=== PATIENT | female | born 1985 | race Caucasian/White ===

== ENCOUNTER 2023-03-21 01:17 | Emergency (ER) | payer OTHER, SELFPAY ==
[2023-03-21 01:23] VITALS: BP 80/40; BP 99/45; PULSE 82; PULSE 90; RESP 16; TEMP 35.8; O2SAT 97; BMI 26.9
[2023-03-21] MEDS: 0.9 % Sodium Chloride 1,000 ML 999 ML IV ×2 (01:45→02:47)
[2023-03-21] MEDS: ondansetron HCL 4 MG/2 ML VIAL IVPUSH (01:45)
--- NOTE | 2023-03-21 01:45 | ED.ALCOHOL ---
HPI - Alcohol General Chief Complaint: ETOH/Substance Use Stated Complaint: od Time Seen by Provider: 03/21/23 01:34 Source: patient Mode of arrival: EMS Limitations: other (ETOH intoxication) History of Present Illness HPI narrative: 37 yo female was at work - admits to drinking more tonight than usual. She denies ingesting anything or drugs. Was found by her friend unresponsive PD gave 8mg narcan which they felt help though the patient is still intoxicated and sleepy with vomiting. BP was 80/40 for EMS. IVF started. Patient denies SI. She states she is sorry. I asked her if she was worried about being slipped something and she states no. complaint: alcohol intoxication Last drink: Just prior to admission Chronic alcohol use: No Previous visits for alcohol intoxication: No Recent trauma: No Associated symptoms: nausea and vomiting Treatments prior to arrival: none Related Data Home Medications Medication Instructions Recorded Confirmed cephalexin 500 mg capsule 500 mg PO Q6H 06/13/22 cyproheptadine 4 mg tablet 4 mg PO Q6H PRN 06/13/22 fluticasone propionate 50 1 spray intranasal DAILY 06/13/22 mcg/actuation nasal spray,suspension (Allergy Relief (fluticasone)) lamotrigine 100 mg tablet 50 mg PO DAILY 06/13/22 methylphenidate HCl 10 mg tablet 10 mg PO DAILY 06/13/22 methylphenidate HCl 18 mg 18 mg PO QAM 06/13/22 tablet,extended release 24 hr omeprazole 10 mg capsule,delayed 10 mg PO DAILY 06/13/22 release quetiapine 200 mg tablet 200 mg PO BEDTIME 06/13/22 quetiapine 25 mg tablet 25 mg PO BID 06/13/22 tizanidine 4 mg capsule 4 mg PO Q8H PRN 06/13/22 valacyclovir 500 mg tablet 1,000 mg PO DAILY 06/13/22 zolpidem 5 mg tablet 5 mg PO BEDTIME PRN 06/13/22 Allergies Allergy/AdvReac Type Severity Reaction Status Date / Time No Known Allergies Allergy Unverified 03/24/20 19:38 [No Known Allergies*] Review of Systems Review of Systems: ROS unable to be obtained due to intoxication PMFSH Past Medical History Attestation statement: The following information was validated with the patient. Medical History No pertinent past medical history Social History Social History (Updated 03/21/23 @ 02:15 by Irina Schwarz DO) Patient Tobacco Use Status: Tobacco use Unknown Physical Exam ED Vital Signs: Vital Signs - 24 hr 03/21/23 01:23 03/21/23 04:01 Temperature 96.4 F L Pulse Rate 82 74 Respiratory Rate 16 19 Blood Pressure 99/45 L 90/42 L Pulse Oximetry 97 99 Oxygen Delivery Method Room Air Room Air BMI result Body Mass Index 26.9 Appearance: Somnolent with ETOH odor but oriented and answering questions slowly, active vomiting which she is clearing her airway and mouth and wiping away vomit. No acute distress. Eyes: Pupils equal, round and reactive to light. ENT: Pharynx normal. Atraumatic Neck: Normal inspection. Neck supple. CVS: Normal heart rate and rhythm. Pulses normal. Respiratory: No respiratory distress. Breath sounds normal. Abdomen: Soft and non-tender. Skin: Skin warm and dry. Normal skin color. Normal skin turgor. Extremities: No lower extremity edema. No calf ttp Neuro: Oriented X 3. No motor deficit. No sensory deficit. Course Course Course Narrative: BP low due to ETOH but patient is laying on his side and will not move for us I do not suspect infection or severe sepsis Reevaluation(s) Reevaluation #1: improving anticipate DC once more sober Medical Decision Making Medical Decision Making [facility] Narrative: 37 yo female with ETOH use tonight while at work denies drugs and quite frankly the narcan didn't help her - will give zofran fluids and obtain basic labs. She denies feeling ill or having issues prior to going to work but admits she drank way more than usual. No head trauma noted or reported. Will observe until clinically sober. Differential Diagnosis Differential Diagnoses: The differential diagnosis associated with the presentation includes intoxication Admission/Observation Consideration of admission/observation: Escalation of care including admission/observation considered observe until clinically sober Lab Data [facility] Lab Attestation statement: I reviewed the patient's lab results. 03/21/23 01:47 03/21/23 01:47 Labs: Lab Results 03/21/23 Range/Units 01:47 WBC 14.3 H (4.8-10.8) X10*3/uL RBC 4.11 L (4.20-5.50) X10*6/uL Hgb 12.2 (12.0-16.0) g/dl Hct 37.0 (37.0-47.0) % MCV 90.0 (80.0-98.0) fL MCH 29.7 (27.0-33.0) pg MCHC 33.0 (31.0-35.0) g/dl RDW 12.6 (11.0-16.0) % Plt Count 261 (160-400) X10*3/uL MPV 10.4 (9.4-12.3) fL Immature Gran % (Auto) 0.5 H (0.0-0.4) % Neut % (Auto) 79.2 H (45-73) % Lymph % (Auto) 13.0 L (20-40) % [place] % (Auto) 6.8 (2-11) % Eos % (Auto) 0.3 (0-4) % Baso % (Auto) 0.2 (0-2) % Lymph # (Auto) 1.9 (1.2-4.9) X10*3/uL [place] # (Auto) 1.0 (0.1-1.2) X10*3/uL Eos # (Auto) 0.1 (0.0-0.4) X10*3/uL Baso # (Auto) 0.0 (0.0-0.2) X10*3/uL Abs Immat Gran (auto) 0.07 H (0.00-0.03) X10*3/uL Absolute Neuts (auto) 11.3 H (2.0-8.3) x10*3/uL Absolute Nucleated RBC 0.000 (0.0-0.012) X10*3/uL Nucleated RBC % (auto) 0.0 (0.0-0.2) /100WBC Sodium 144 (135-145) mmol/L Potassium 3.2 L (3.3-5.1) mmol/L Chloride 110 H (96-108) mmol/L Carbon Dioxide 18 L (22-29) mmol/L Anion Gap 19 (12-20) BUN 6 L (9-16) mg/dL Creatinine 0.95 (0.5-1.4) mg/dL Estim Creat Clear Calc 72.5 Estimated GFR > 60 Random Glucose 215 H (60-115) mg/dL Calcium 8.6 (8.4-10.2) mg/dL Magnesium 2.3 (1.6-2.6) mg/dL Total Bilirubin 0.2 (0.0-1.0) mg/dL Direct Bilirubin < 0.2 (0.0-0.5) mg/dL AST 28 (5-31) U/L ALT 24 (0-31) U/L Alkaline Phosphatase 80 (39-117) U/L Total Protein 7.2 (6.5-8.0) g/dL Albumin 4.4 (3.5-5.0) g/dL Beta HCG, Quant < 2 mIU/mL Independent Historian Clinical information obtained from an independent historian. History obtained from or confirmed by: EMS Social Determinants Patient?s care significantly limited by Social Determinants of Health including: Problems related to primary support group Medications Administered Discontinued Medications Generic Name Dose Route Start Last Admin Trade Name Freq PRN Reason Stop Dose Admin Sodium Chloride 1,000 mls @ 999 mls/hr 03/21/23 01:45 03/21/23 02:46 Ns IV 03/21/23 02:45 Infused .Q1H1M ESTELA Infusion Sodium Chloride 1,000 mls @ 999 mls/hr 03/21/23 02:30 03/21/23 03:48 Ns IV 03/21/23 03:30 Infused .Q1H1M ESTELA Infusion Ondansetron HCl 4 mg 03/21/23 01:42 03/21/23 01:45 Ondansetron Hcl 4 Mg/2 Ml Vial IVPUSH 03/21/23 01:43 4 mg ONCE ONE Administration Prochlorperazine Edisylate 10 mg 03/21/23 02:18 03/21/23 02:47 Prochlorperazine Edisylate 10 Mg/2 Ml Vial IVPUSH 03/21/23 02:19 10 mg ONCE ONE Administration Discharge Plan Discharge Clinical Impression: Acute hypokalemia Alcoholic intoxication Qualifiers: Complication of substance-induced condition: with unspecified complication Qualified Code(s): F10.929 - Alcohol use, unspecified with intoxication, unspecified Patient Disposition: Home, Self-Care Instructions: Hypokalemia (ED), Alcohol Intoxication (ED) Additional Instructions: stay with responsible adult return for worsening symptoms, fevers, difficulty breathing, pain or any other concerns. your potassium was slightly low please eat potassium rich foods. Prescriptions: No Action cephalexin 500 mg capsule 500 mg PO Q6H cyproheptadine 4 mg tablet 4 mg PO Q6H PRN fluticasone propionate [Allergy Relief (fluticasone)] 50 mcg/actuation spray,suspension 1 spray intranasal DAILY Rx Instructions: administer into each nostril lamotrigine 100 mg tablet 50 mg PO DAILY methylphenidate HCl 10 mg tablet 10 mg PO DAILY methylphenidate HCl 18 mg tablet extended release 24hr 18 mg PO QAM omeprazole 10 mg capsule,delayed release(DR/EC) 10 mg PO DAILY quetiapine 200 mg tablet 200 mg PO BEDTIME quetiapine 25 mg tablet 25 mg PO BID tizanidine 4 mg capsule 4 mg PO Q8H PRN valacyclovir 500 mg tablet 1,000 mg PO DAILY zolpidem 5 mg tablet 5 mg PO BEDTIME PRN
[2023-03-21 01:53] LABS: MANUAL DIFF FLAG NO
[2023-03-21 01:56] LABS: Basophils Percent Auto 0.2 % (0-2); Eosinophils Absolute Auto 0.1 X10*3/uL (0.0-0.4); Eosinophils Percent Auto 0.3 % (0-4); Hemoglobin 12.2 g/dl (12.0-16.0); Imm Gran Abs Auto 0.07 X10*3/uL (0.00-0.03); Imm Gran Pct Auto 0.5 % (0.0-0.4); Lymphocytes Absolute Auto 1.9 X10*3/uL (1.2-4.9); Mean Corpuscular Hemoglobin 29.7 pg (27.0-33.0); Mean Platelet Volume 10.4 fL (9.4-12.3); Monocytes Percent Auto 6.8 % (2-11); Neutrophils Absolute Auto 11.3 x10*3/uL (2.0-8.3); Neutrophils Percent Auto 79.2 % (45-73); Platelet Count 261 X10*3/uL (160-400); Red Blood Count 4.11 X10*6/uL (4.20-5.50); Red Cell Distribution Width 12.6 % (11.0-16.0); White Blood Count 14.3 X10*3/uL (4.8-10.8)
[2023-03-21 02:20] LABS: Alanine Aminotransferase 24 U/L (0-31); Albumin Level 4.4 g/dL (3.5-5.0); Alkaline Phosphatase 80 U/L (39-117); Anion Gap 19 (12-20); Aspartate Amino Transferase 28 U/L (5-31); Bilirubin Direct < 0.2 mg/dL (0.0-0.5); Bilirubin Total 0.2 mg/dL (0.0-1.0); Blood Urea Nitrogen 6 mg/dL (9-16); Calcium 8.6 mg/dL (8.4-10.2); Carbon Dioxide 18 mmol/L (22-29); Chloride 110 mmol/L (96-108); Creatinine Clr Calc Pharmacy 72.5; Estimated Glomerular Filt Rate > 60; Glucose Random 215 mg/dL (60-115); Magnesium 2.3 mg/dL (1.6-2.6); Potassium 3.2 mmol/L (3.3-5.1); Sodium 144 mmol/L (135-145); Total Protein 7.2 g/dL (6.5-8.0)
[2023-03-21 02:21] LABS: HCG Quantitative < 2 mIU/mL
[2023-03-21] MEDS: Prochlorperazine Edisylate 10 MG/2 ML VIAL IVPUSH (02:47)
[2023-03-21 04:01] VITALS: BP 90/42; PULSE 74; RESP 19; O2SAT 99
[2023-03-21] MEDS: Potassium Chloride Packet 20 MEQ PACKET 40 MEQ PO (05:52)
[2023-03-21 05:53] VITALS: BP 100/53; PULSE 71; RESP 17; O2SAT 100
--- NOTE | 2023-03-21 07:56 | PC.NURSE ---
Pt is a/ox4, she is not aware why she was brought in to the ED last night, advised pt that she was unresponsive last night, and PD narcaned her. Pt belives she might have been ruffied. Pt called and updated that she was here, pt did not want to know details of what happened. Pt currently shaking in bed, provider at bedside assessing pt.
--- OUTSIDE RECORDS SUMMARY | 2023-03-21 07:57 | XMS_ITS | Continuity of Care Document ---
Author Name Unknown Organization [facility] [place] Address [address] [place] [address]- Care Team Providers Care Billing Administrator Name Role Phone Not on Staff, PCP Primary Care Physician Unavail able Encounter 01/15/23 - 01/22/23 [facility] [address], [address] [place] [address]- Attending Physician: Martha Eagle NP Admitting Physician: Martha Eagle NP Referring Physician: Martha Eagle NP Allergies, Adverse Reactions, Alerts No Known Medication Allergies Immunizations Given and Recorded Vaccine Date Status Refusal Reason influenza virus vaccine, inactivated 1, 2 04/20/19 Given Measles/Mumps/Rubella Virus Vaccine 07/25/13 Given tetanus/diphtheria/pertussis, acel(Tdap) 05/25/13 Given 1Result Comment: [facility]# [id number] 2Result Comment: charted on wrong pt. Medications Diazepam = 10 mg, PRN as needed for anxiety, 0 Refills, Maintenance, 12/27/22 22:48:00 EDT, Partial fill upon patient request if the prescription is for a schedule II opioid drug. Start Date: 12/27/22 Status: Ordered lamotrigine 200 mg oral tablet, disintegrating 1 tablet = 200 mg, By Mouth, Daily, # 30 tablet, 0 Refills, Maintenance, 12/27/22 22:47:00 EDT, DISTablet, Partial fill upon patient request if the prescription is for a schedule II opioid drug. Start Date: 12/27/22 Status: Ordered lithium 300 mg oral capsule 1 capsule = 300 mg, By Mouth, 3 times a day, # 270 capsule, 0 Refills, Maintenance, 12/27/22 22:48:00 EDT, Capsule, Partial fill upon patient request if the prescription is for a schedule II opioid drug. Start Date: 12/27/22 Status: Ordered SEROquel XR 300 mg oral tablet, extended release 1 tablet = 300 mg, By Mouth, Daily, # 30 tablet, 0 Refills, Maintenance, 12/27/22 22:47:00 EDT, ER Tablet, Partial fill upon patient request if the prescription is for a schedule II opioid drug. Start Date: 12/27/22 Status: Ordered Problem List Condition Confirmation Course Effective Dates Status Health St atus Informant Back pain Confirmed 07/10/07 Active Bipolar Confirmed 07/10/07 Active Chronic post-traumatic stress disorder (PTSD) Confirmed Active Eating disorder Confirmed Active Generalized anxiety disorder Confirmed Active Insomnia Confirmed Active Intermittent asthma Confirmed Active Asthma, mild intermittent Confirmed Active Cervicalgia of juckcbfs-khgtwjd-vf ial region Confirmed Active Results Radiology Reports * Exam Date Time Procedure Performing Provider Status 01/15/23 9:[address] Head/Brain W/O Contrast Francisco Lugo; Auth (Verified) Notes: (CT Head/Brain W/O Contrast) Reason For Exam: [id number] SYNCOP RESULT: CT Head/Brain W/O Contrast CT Head/Brain W/O Contrast INDICATION: Syncope TECHNIQUE: Noncontrast head CT using axial technique and reconstructed in axial and coronal planes.Iterative reconstruction techniques are used to optimize dose and image quality. CTDIvol Head: 48.40 mGy, DLP Head: 774 mGy*cm. COMPARISON: 02/11/2020 FINDINGS: Java Integration Developer view findings, lines and tubes: None. BRAIN AND EXTRA-AXIAL SPACES: No parenchymal hemorrhage, midline shift, or mass effect. Blair-white matter differentiation is wellpreserved. No acute infarct. Ventricles, sulci, and basilar cisterns are normal. No white matter lesions. No subarachnoid hemorrhage. No subdural or epidural collection. CALVARIUM, SKULL BASE, AND SOFT TISSUES: No fractures or suspicious bony lesions. The paranasal sinuses and mastoid air cells are clear. Visualized orbits and globes are intact. The extracranial soft tissues are unremarkable. IMPRESSION: Normal. WSN: [id number] Ordering Physician: Martha Eagle NP Dictated By: Luisito Gavin MD Dictated Date/Time: 01/15/23 11:30 a Reviewed By: Luisito Gavin MD Signed By: Luisito Gavin MD Signed Date/Time: 01/15/23 11:30 am Transcribed By: BLESSING Transcribed Date/Time: 01/15/23 11:29 am Social History Social History Type Response Smoking Status Former smoker, quit more than 30 days ago; Tobacco user in household: No; Type: Cigarettes; Interested in cessation: No entered on: 08/01/18 Sex Patient Care team information Care Team Personnel Name: Mela Arreaga MA Position: [facility] RN Member Role: Primary Care Nurse Name: Not on Staff, PCP Position: [facility] Physician (General Medicine) Member Role: PCP Care Team Related Persons Name: GINA RAMOS Address: home [address] [place] [id number] Name: BRYCE VAZQUEZ Name: CHARI MANLEY Address: [address] [address] Name: TEDDY SAUCEDA Address: [address] [place] [address]
--- OUTSIDE RECORDS SUMMARY | 2023-03-21 07:57 | XMS_ITS | Continuity of Care Document ---
Author Name Unknown Organization [facility] Address [address] [place] [address]- Care Team Providers Care Riverboat Captain Name Role Phone Sebastien HURST, Yael Fields Primary Care Physician Encounter [facility] Date(s): 03/30/21 - 03/30/[address] [address]- Discharge Disposition: A-D/C Home Attending Physician: Geremias Dixon MD Admitting Physician: Geremias Dixon MD Referring Physician: Geremias Dixon MD Allergies, Adverse Reactions, Alerts No Known Medication Allergies Immunizations Given and Recorded Vaccine Date Status Refusal Reason influenza virus vaccine, inactivated 1, 2 04/20/19 Given Measles/Mumps/Rubella Virus Vaccine 07/25/13 Given tetanus/diphtheria/pertussis, acel(Tdap) 05/25/13 Given 1Result Comment: [facility]# [id number] 2Result Comment: charted on wrong pt. Medications acetaminophen 325 mg oral tablet 650 mg, By Mouth, Every 6 hours, PRN, Refills 0, Maintenance, Pain , Mild Pain , Moderate, 12/15/18 13:27:49 EDT Start Date: 12/15/18 Status: Ordered Lamotrigine 100 mg, By Mouth, Daily, Refills 0, Maintenance, 12/13/18 14:51:11 EDT Start Date: 12/13/18 Status: Ordered Lunesta 2 mg oral tablet 1 tablet = 2 mg, By Mouth, Daily at bedtime, PRN for insomnia, # 30 tablet, 0 Refills, Maintenance,03/08/21 9:34:00 EDT, Tablet, [id number], Partial fill upon patient request if the prescription is for a schedule II opioid drug., 163, cm, 08/... Start Date: 03/08/21 Status: Ordered omeprazole 20 mg oral delayed release tablet 1 tablet = 20 mg, By Mouth, Daily, # 30 tablet, 6 Refills, Maintenance, 10/17/20 14:20:00 EDT, CR Tablet, [facility]/pharm[facility] #[id number], Partial fill upon patient request if the prescription is for a schedule II opioid drug., 163, cm, 10/17/20 14:06:00 EDT, Heig... Start Date: 10/17/20 Stop Date: 05/15/21 Status: Ordered ondansetron 4 mg oral tablet 1 tablet, By Mouth, Every 12 hours, PRN NEEDED FOR NAUSEA AND VOMITING FOR, # 60 tablet, 1 Refills, Maintenance, 06/22/20 8:37:00 EST, [facility] STORE [id number], 163, cm, 04/04/20 13:24:00 EDT, Height, 48, kg, 12/13/18 14:17:00 EDT, Dry Weight Start Date: 06/22/20 Stop Date: 07/22/20 Status: Ordered Rid Pediculicide 0.33%-4% topical shampoo 1 applicator, Topically, Once, as directed on package labeling, # 118 mL, 1 Refills, Soft Stop, 10/12/19 14:24:00 EDT, [facility]/pharmacy #[id number], 1 applicator Topically Once,Instr:as directed on package labeling, 163, cm, 04/20/19 15:52:00 EDT, Height, 48, k... Start Date: 10/12/19 Status: Ordered tiZANidine 4 mg oral tablet 1, tablet, By Mouth, Every 8 hours, # 90 tablet, Refills 0, Route to Pharmacy Electronically, [id number], 163, cm, 03/06/21 15:24:00 EDT, Height Start Date: 03/29/21 Status: Ordered valACYclovir 500 mg oral tablet 1,000 mg, 2, tablet, By Mouth, Daily, for 30 days, # 60 tablet, Refills 5, Tot. Refills 5, Acute 09/13/21 14:19:00 EST, 03/17/21 14:19:00 EDT, Route to Pharmacy Electronically, [facility]/pharm[facility] #[id number], 163, cm, 03/06/21 15:24:00 EDT, Height Start Date: 03/17/21 Stop Date: 09/13/21 Status: Ordered Problem List Condition Effective Dates Status Health Status Inform ant Back pain(Confirmed) 07/10/07 Active Bipolar(Confirmed) 07/10/07 Active Chronic post-traumatic stres s disorder (PTSD)(Confirmed) Active Eating disorder(Confirmed) Active Generalized anxiety disorder(Confirmed) Active Insomnia(Confirmed) Active Intermittent asthma(Confirmed) Active Asthma, mild intermittent(Confirmed) Active Cervicalgia of occipito-atla nto-axial region(Confirmed) Active Procedures Procedure Date Related Diagnosis Body Site Status Colonoscopy and biopsy of colon 03/30/21 Completed Esophagogastroduodenoscopy and biopsy 03/30/21 Completed Vital Signs Most recent to oldest [Reference Range]: 1 2 3 Height 165.1 cm (03/30/21 1:12 PM) Weight 40.9 kg (03/30/21 1:12 PM) Oxygen Saturation [94-100 %] 100 % (03/30/21 3:59 PM) 100 % (03/30/21 3:36 PM) 100 % (03/30/21 3:33 PM) Pulse Rate [55-90 bpm] 74 bpm (03/30/21 1:12 PM) Body Mass Index [18.5-24.99] 15 *L* (03/30/21 1:12 PM) Blood Pressure [90-138/55-84 mm Hg] 98/71mm Hg (03/30/21 3:59 PM) 89/42mm Hg *L* (03/30/21 3:36 PM) 86/55mm Hg *L* (03/30/21 3:33 PM) Respiratory Rate [16-30 br/min] 14 br/min *L* (03/30/21 3:59 PM) 19 br/min (03/30/21 3:36 PM) 20 br/min (03/30/21 3:33 PM) Temperature [96.8-100.4 DegF] 97.9 DegF (03/30/21 1:12 PM) Mode of Delivery (Oxygen) Room air (03/30/21 3:59 PM) Room air (03/30/21 3:36 PM) Room air (03/30/21 3:33 PM) Blood pressure sites Arm, left (03/30/21 3:59 PM) Arm, left (03/30/21 3:36 PM) Arm, left (03/30/21 3:33 PM) Temperature Route Temporal (03/30/21 1:12 PM) Dry Weight 40.9 kg (03/30/21 1:12 PM) Weight Obtained Via Patient/family state d (03/30/21 1:12 PM) Dry Weight Obtained Via Patient/family s tated (03/30/21 1:12 PM) Social History Social History Type Response Smoking Status Former smoker, quit more than 30 days ago; Tobacco user in household: No; Type: Cigarettes; Interested in cessation: No entered on: 08/01/18 Sex Female
--- OUTSIDE RECORDS SUMMARY | 2023-03-21 07:57 | XMS_ITS | Continuity of Care Document ---
Author Name Unknown Organization [facility] Address [address] [place] [address]- Care Team Providers Care School Business Administrator Name Role Phone Sebastien HURST, Yael Fields Primary Care Physician [phone] Encounter [facility] NBR [id number] Date(s): 10/01/19 - 10/11/[facility] [address] [place] [address]- Attending Physician: Drew Ruffin Admitting Physician: Drew Ruffin Referring Physician: AdmtrDrew Allergies, Adverse Reactions, Alerts No Known Medication Allergies Immunizations Given and Recorded Vaccine Date Status Refusal Reason influenza virus vaccine, inactivated 1, 2 04/20/19 Given Measles/Mumps/Rubella Virus Vaccine 07/25/13 Given tetanus/diphtheria/pertussis, acel(Tdap) 05/25/13 Given 1Result Comment: [facility]# [id number] 2Result Comment: charted on wrong pt. Medications acetaminophen 325 mg oral tablet 650 mg, By Mouth, Every 6 hours, PRN, Refills 0, Maintenance, Pain , Mild Pain , Moderate, 12/15/18 13:27:49 EDT Start Date: 12/15/18 Status: Ordered Lamotrigine 100 mg, By Mouth, Daily, Refills 0, Maintenance, 12/13/18 14:51:11 EDT Start Date: 12/13/18 Status: Ordered Zofran 4 mg oral tablet 1 tablet = 4 mg, By Mouth, Every 8 hours, PRN Nausea & Vomiting, # 6 tablet, 0 Refills, Maintenance, 12/15/18 13:28:17 EDT, Tablet Start Date: 12/15/18 Status: Ordered Problem List Condition Effective Dates Status Health Status Inform ant Back pain(Confirmed) 07/10/07 Active Bipolar(Confirmed) 07/10/07 Active Chronic post-traumatic stres s disorder (PTSD)(Confirmed) Active Eating disorder(Confirmed) Active Generalized anxiety disorder(Confirmed) Active Insomnia(Confirmed) Active Intermittent asthma(Confirmed) Active Asthma, mild intermittent(Confirmed) Active Cervicalgia of occipito-atla nto-axial region(Confirmed) Active Social History Social History Type Response Smoking Status Former smoker, quit more than 30 days ago; Tobacco user in household: No; Type: Cigarettes; Interested in cessation: No entered on: 08/01/18 Sex
--- OUTSIDE RECORDS SUMMARY | 2023-03-21 07:57 | XMS_ITS | Continuity of Care Document ---
Author Name Unknown Organization [facility] Address [address] [place] [address]- Care Team Providers Care Information Services Tech Name Role Phone Yael Crowe MD Primary Care Physician [phone] Encounter [facility] NBR [id number] Date(s): 08/03/20 [facility] [address] [place] [address]- Attending Physician: AdmDrew cuevas Admitting Physician: AdmtrDrew Referring Physician: Admtr, Ar8 Allergies, Adverse Reactions, Alerts No Known Medication Allergies Immunizations Given and Recorded Vaccine Date Status Refusal Reason influenza virus vaccine, inactivated 1, 2 04/20/19 Given Measles/Mumps/Rubella Virus Vaccine 07/25/13 Given tetanus/diphtheria/pertussis, acel(Tdap) 05/25/13 Given 1Result Comment: [facility]# [id number] 2Result Comment: charted on wrong pt. Medications acetaminophen 325 mg oral tablet 650 mg, By Mouth, Every 6 hours, PRN, Refills 0, Maintenance, Pain , Mild Pain , Moderate, 12/15/18 13:27:49 EDT Start Date: 12/15/18 Status: Ordered Lamotrigine 100 mg, By Mouth, Daily, Refills 0, Maintenance, 12/13/18 14:51:11 EDT Start Date: 12/13/18 Status: Ordered ondansetron 4 mg oral tablet 1 tablet, By Mouth, Every 12 hours, PRN NEEDED FOR NAUSEA AND VOMITING FOR, # 60 tablet, 1 Refills, Maintenance, 06/22/20 8:37:00 EST, [id number], 163, cm, 04/04/20 13:24:00 EDT, Height, 48, kg, 12/13/18 14:17:00 EDT, Dry Weight Start Date: 06/22/20 Stop Date: 07/22/20 Status: Ordered Rid Pediculicide 0.33%-4% topical shampoo 1 applicator, Topically, Once, as directed on package labeling, # 118 mL, 1 Refills, Soft Stop, 10/12/19 14:24:00 EDT, [facility]/pharmacy #[id number], 1 applicator Topically Once,Instr:as directed on package labeling, 163, cm, 04/20/19 15:52:00 EDT, Height, 48, k... Start Date: 10/12/19 Status: Ordered valACYclovir 500 mg oral tablet 1,000 mg, 2, tablet, By Mouth, Daily, for 30 days, # 60 tablet, Refills 5, Tot. Refills 5, Acute 10/26/20 14:54:00 EDT, 04/29/20 14:54:00 EDT, Route to Pharmacy Electronically, [facility]/pharmacy #[id number], 163, cm, 04/04/20 13:24:00 EDT, Height, 48, kg, ... Start Date: 04/29/20 Stop Date: 10/26/20 Status: Ordered Problem List Condition Effective Dates [...]
--- OUTSIDE RECORDS SUMMARY | 2023-03-21 07:57 | XMS_ITS | Continuity of Care Document ---
Author Name Unknown Organization [facility] ter Address [address] [place] [address]- Care Team Providers Care Service Center Technician Name Role Phone Natalie Aaron MD Primary Care Physician Encounter [facility] Date(s): 09/21/21 - 10/27/[address] [address]- Attending Physician: Neha Zabala MD Admitting Physician: Neha Zabala MD Referring Physician: Neha Zabala MD Allergies, Adverse Reactions, Alerts No Known Medication Allergies Immunizations Given and Recorded Vaccine Date Status Refusal Reason influenza virus vaccine, inactivated 1, 2 04/20/19 Given Measles/Mumps/Rubella Virus Vaccine 07/25/13 Given tetanus/diphtheria/pertussis, acel(Tdap) 05/25/13 Given 1Result Comment: [facility]# [id number] 2Result Comment: charted on wrong pt. Medications acetaminophen 325 mg oral tablet 650 mg, By Mouth, Every 6 hours, PRN, Refills 0, Maintenance, Pain , Mild Pain , Moderate, 12/15/18 13:27:49 EDT Start Date: 12/15/18 Status: Ordered Ambien 5 mg oral tablet 1 tablet = 5 mg, By Mouth, Daily at bedtime, PRN as needed for insomnia, # 30 tablet, 0 Refills, Acute 11/18/21 17:57:00 EDT, 05/22/21 17:57:00 EST, Tablet, [id number], Partial fill upon patient request if the prescription is for a schedule II... Start Date: 05/22/21 Stop Date: 11/18/21 Status: Ordered Lamotrigine 100 mg, By Mouth, Daily, Refills 0, Maintenance, 12/13/18 14:51:11 EDT Start Date: 12/13/18 Status: Ordered omeprazole 20 mg oral delayed release tablet 1 tablet = 20 mg, By Mouth, Daily, # 30 tablet, 6 Refills, Maintenance, 10/17/20 14:20:00 EDT, CR Tablet, [facility]/pharmacy #[id number], Partial fill upon patient request if the prescription is for a schedule II opioid drug., 163, cm, 10/17/20 14:06:00 EDT, [place]... Start Date: 10/17/20 Stop Date: 05/15/21 Status: Ordered ondansetron 4 mg oral tablet 1 tablet, By Mouth, Every 12 hours, PRN NEEDED FOR NAUSEA AND VOMITING FOR, # 60 tablet, 1 Refills, Maintenance, 06/22/20 8:37:00 EST, [facility] STORE 27105, 163, cm, 04/04/20 13:24:00 EDT, Height, 48, [...] tablet, Refills 0, Route to Pharmacy Electronically, [facility] 85015, 163, cm, 03/06/21 15:24:00 EDT, Height Start Date: 03/29/21 Status: Ordered valACYclovir 500 mg oral tablet 2, tablet, By Mouth, Daily, # 180 tablet, Refills 1, Route to Pharmacy Electronically, [facility] 44722, 165.1, cm, 05/24/21 17:21:00 EST, Height, 40.9, kg, 03/30/21 13:12:00 EDT, Dry Weight Start Date: 09/06/21 Status: Ordered Problem List Condition Effective Dates Status Health Status Inform ant Back pain(Confirmed) 07/10/07 Active Bipolar(Confirmed) 07/10/07 Active Chronic post-traumatic stres s disorder (PTSD)(Confirmed) Active Eating disorder(Confirmed) Active Generalized anxiety disorder(Confirmed) Active Insomnia(Confirmed) Active Intermittent asthma(Confirmed) Active Asthma, mild intermittent(Confirmed) Active Cervicalgia of occipito-atla nto-axial region(Confirmed) Active Underweight(Confirmed) Active Social History Social History Type Response Smoking Status Former smoker, quit more than 30 days ago; Tobacco user in household: No; Type: Cigarettes; Interested in cessation: No entered on: 08/01/18 Sex Female
--- OUTSIDE RECORDS SUMMARY | 2023-03-21 07:57 | XMS_ITS | Continuity of Care Document ---
Author Name Unknown Organization [facility] Address [address] [place] [address]- Care Team Providers Care Non Food Receiving Clerk Name Role Phone Sebastien HURST, Yael Fields Primary Care Physician [phone] Encounter [facility] NBR [id number] Date(s): 02/09/20 - 03/10/20 [facility] [address] [place] [address]- Allergies, Adverse Reactions, Alerts No Known Medication Allergies Immunizations Given and Recorded Vaccine Date Status Refusal Reason influenza virus vaccine, inactivated 1, 2 04/20/19 Given Measles/Mumps/Rubella Virus Vaccine 07/25/13 Given tetanus/diphtheria/pertussis, acel(Tdap) 05/25/13 Given 1Result Comment: [facility]# [id number] 2Result Comment: charted on wrong pt. Medications acetaminophen 325 mg oral tablet 650 mg, By Mouth, Every 6 hours, PRN, Refills 0, Maintenance, Pain , Mild Pain , Moderate, 12/15/18 13:27:49 EDT Start Date: 12/15/18 Status: Ordered Lamotrigine 100 mg, By Mouth, Daily, Refills 0, Maintenance, 12/13/18 14:51:11 EDT Start Date: 12/13/18 Status: Ordered Rid Pediculicide 0.33%-4% topical shampoo 1 applicator, Topically, Once, as directed on package labeling, # 118 mL, 1 Refills, Soft Stop, 10/12/19 14:24:00 EDT, [id number], 1 applicator Topically Once,Instr:as directed on package labeling, 163, cm, 04/20/19 15:52:00 EDT, Height, 48, k... Start Date: 10/12/19 Status: Ordered Zofran 4 mg oral tablet [...]
--- OUTSIDE RECORDS SUMMARY | 2023-03-21 07:57 | XMS_ITS | Continuity of Care Document ---
Author Name Unknown Organization [facility] Address [address] [place] [address]- Care Team Providers Care Director Bioinformatics Name Role Phone Sebastien HURST, Yael M Primary Care Physician [phone] Encounter [facility] Date(s): 03/17/21 - 04/16/21 [place] [id number]- [place] Allergies, Adverse Reactions, Alerts No Known Medication Allergies Immunizations Given and Recorded Vaccine Date Status Refusal Reason influenza virus vaccine, inactivated 1, 2 04/20/19 Given Measles/Mumps/Rubella Virus Vaccine 07/25/13 Given tetanus/diphtheria/pertussis, acel(Tdap) 05/25/13 Given 1Result Comment: [facility]# [id number] 2Result Comment: charted on wrong pt. Medications [...] a schedule II opioid drug., 163, cm, ... Start Date: 03/08/21 Status: Ordered omeprazole 20 mg oral delayed release tablet 1 tablet = 20 mg, By Mouth, Daily, # 30 tablet, 6 Refills, Maintenance, 10/17/20 14:20:00 EDT, CR Tablet, [facility]/pharmacy #[id number], Partial fill upon patient request if the prescription is for a schedule II opioid drug., 163, cm, 10/17/20 14:06:00 EDT, [place]. Start Date: 10/17/20 Stop Date: 05/15/21 Status: Ordered ondansetron 4 mg oral tablet 1 tablet, By Mouth, Every 12 hours, PRN NEEDED FOR NAUSEA AND VOMITING FOR, # 60 tablet, 1 Refills, Maintenance, 06/22/20 8:37:00 EST, [facility] STORE 02932, 163, cm, 04/04/20 13:24:00 EDT, Height, 48, kg, 12/13/18 14:17:00 EDT, Dry Weight Start Date: 06/22/20 Stop Date: 07/22/20 Status: Ordered Rid Pediculicide 0.33%-4% topical shampoo 1 applicator, Topically, Once, as directed on package labeling, # 118 mL, 1 Refills, Soft Stop, 10/12/19 14:24:00 EDT, [facility]/pharmacy #[id number], 1 applicator Topically Once,Instr:as directed on package labeling, 163, cm, 04/20/19 15:52:00 EDT, Height, 48, k... Start Date: 10/12/19 Status: Ordered tiZANidine 4 mg oral tablet 1, tablet, By Mouth, Every 8 hours, # 90 tablet, Refills 0, Route to Pharmacy Electronically, [facility] STORE 14640, 163, cm, 03/06/21 15:24:00 EDT, Height Start Date: 03/29/21 Status: Ordered valACYclovir 500 mg oral tablet 1,000 mg, 2, tablet, By Mouth, Daily, for 30 days, # 60 tablet, Refills 5, Tot. Refills 5, Acute 09/13/21 14:19:00 EST, 03/17/21 14:19:00 EDT, Route to Pharmacy Electronically, [facility]/pharmacy #[id number], 163, cm, 03/06/21 15:24:00 EDT, [...]
--- OUTSIDE RECORDS SUMMARY | 2023-03-21 07:58 | XMS_ITS | Continuity of Care Document ---
Author Name Unknown Organization [facility] Address [address] [place] [address]- Care Team Providers Care White Metal Caster Name Role Phone Sebastien HURST, Yael Fields Primary Care Physician [phone] Encounter [facility] NBR [id number] Date(s): 12/16/19 - [facility]/15/[facility] [address] [place] [address]- Attending Physician: Drew Ruffin Admitting Physician: Drew Ruffin Referring Physician: AdmtrDrew Allergies, Adverse Reactions, Alerts No Known Medication Allergies Immunizations Given and Recorded Vaccine Date Status Refusal Reason influenza virus vaccine, inactivated 1, 2 04/20/19 Given Measles/Mumps/Rubella Virus Vaccine 07/25/13 Given tetanus/diphtheria/pertussis, acel(Tdap) 05/25/13 Given 1Result Comment: [facility]# [id number] 2Result Comment: charted on wrong pt. Medications [...]
--- OUTSIDE RECORDS SUMMARY | 2023-03-21 07:58 | XMS_ITS | Continuity of Care Document ---
Author Name Unknown Organization [facility] Address [address] [place] [address]- Care Team Providers Care Enrichment Director Name Role Phone Sebastien HURST, Yael Fields Primary Care Physician Encounter [facility] Date(s): 08/31/21 - 09/30/[address] [address]- Attending Physician: Drew Ruffin Admitting Physician: Drew Ruffin Referring Physician: AdmtrDrew Allergies, Adverse Reactions, Alerts No Known Medication Allergies Immunizations Given and Recorded Vaccine Date Status Refusal Reason influenza virus vaccine, inactivated 1, 2 04/20/19 Given Measles/Mumps/Rubella Virus Vaccine 07/25/13 Given tetanus/diphtheria/pertussis, acel(Tdap) 05/25/13 Given 1Result Comment: [facility]# [id number] 2Result Comment: charted on wrong pt. Medications [...] Refills, Maintenance, 10/17/20 14:20:00 EDT, CR Tablet, [facility]/pharmacy #[id number], Partial fill upon patient request if the prescription is for a schedule II opioid drug., 163, cm, 10/17/20 14:06:00 EDT, Heig... Start Date: 10/17/20 Stop Date: 05/15/21 Status: Ordered ondansetron 4 mg oral tablet 1 tablet, By Mouth, Every 12 hours, PRN NEEDED FOR NAUSEA AND VOMITING FOR, # 60 tablet, 1 Refills, Maintenance, 06/22/20 8:37:00 EST, [facility] STORE 44704, 163, cm, 04/04/20 13:24:00 EDT, Height, 48, kg, 12/13/18 14:17:00 EDT, Dry Weight Start Date: 06/22/20 Stop Date: 07/22/20 Status: Ordered Rid Pediculicide 0.33%-4% topical shampoo 1 applicator, Topically, Once, as directed on package labeling, # 118 mL, 1 Refills, Soft Stop, 10/12/19 14:24:00 EDT, [facility]/pharmacy #[id number], 1 applicator Topically Once,Instr:as directed on package labeling, 163, cm, 04/20/19 15:52:00 EDT, Height, 48, k... Start Date: 10/12/19 Status: Ordered tiZANidine 4 mg oral tablet 1, tablet, By Mouth, Every 8 hours, # 90 tablet, Refills 0, Route to [facility]acy Electronically, [facility], 163, cm, 03/06/21 15:24:00 EDT, Height Start Date: 03/29/21 Status: Ordered valACYclovir 500 mg oral tablet 2, tablet, By Mouth, Daily, # 180 tablet, Refills 1, Route to Pharmacy Electronically, [facility] 39363, 165.1, cm, 05/24/21 17:21:00 EST, Height, 40.9, [...]
--- OUTSIDE RECORDS SUMMARY | 2023-03-21 07:58 | XMS_ITS | Continuity of Care Document ---
Author Name Unknown Organization [facility] Address [address] [place] [address]- Care Team Providers Care Paint Preparer Name Role Phone Yael Crowe MD Primary Care Physician Encounter [facility] Date(s): 07/13/20 - 08/12/20 [facility] [address] [place] [address]- Allergies, Adverse Reactions, Alerts No Known Medication Allergies Immunizations Given and Recorded Vaccine Date Status Refusal Reason influenza virus vaccine, inactivated 1, 2 04/20/19 Given Measles/Mumps/Rubella Virus Vaccine 07/25/13 Given tetanus/diphtheria/pertussis, acel(Tdap) 05/25/13 Given 1Result Comment: [facility]# [id number] 2Result Comment: charted on wrong pt. Medications [...] tablet, 1 Refills, Maintenance, 06/22/20 8:37:00 EST, [facility] 87826, 163, cm, 04/04/20 13:24:00 EDT, Height, 48, kg, 12/13/18 14:17:00 EDT, Dry Weight Start Date: 06/22/20 Stop Date: 07/22/20 Status: Ordered Rid Pediculicide 0.33%-4% topical shampoo 1 applicator, Topically, Once, as directed on package labeling, # 118 mL, 1 Refills, Soft Stop, 10/12/19 14:24:00 EDT, [facility]/pharmacy #[id number], 1 applicator Topically Once,Instr:as directed on package labeling, 163, cm, 04/20/19 15:52:00 EDT, Height, 48, k... Start Date: 10/12/19 Status: Ordered valACYclovir 500 mg oral tablet 1,000 mg, 2, tablet, By Mouth, Daily, for 30 days, # 60 tablet, Refills 5, Tot. Refills 5, Acute 10/26/20 14:54:00 EDT, 04/29/20 14:54:00 EDT, Route to Pharmacy Electronically, [facility]/pharmacy #[id number], 163, cm, 04/04/20 13:24:00 EDT, Height, 48, kg, 12/13/... Start Date: 04/29/20 Stop Date: 10/26/20 Status: [...]
--- OUTSIDE RECORDS SUMMARY | 2023-03-21 07:58 | XMS_ITS | Continuity of Care Document ---
Author Name Unknown [facility] Address [address] [place] [address]- Care Team Providers Care Airconditioning Plant Operator Name Role Phone Yael Crowe MD Primary Care Physician [phone] Encounter [facility] Date(s): 07/27/20 - 08/26/[facility] [address] [place] [address]- Allergies, Adverse Reactions, Alerts No Known Medication Allergies Immunizations Given and Recorded Vaccine Date Status Refusal Reason influenza virus vaccine, inactivated 1, 2 04/20/19 Given Measles/Mumps/Rubella Virus Vaccine 07/25/13 Given tetanus/diphtheria/pertussis, acel(Tdap) 05/25/13 Given 1Result Comment: [facility]# [id number] 2Result Comment: charted on wrong pt. Medications [...] tablet, 1 Refills, Maintenance, 06/22/20 8:37:00 EST, [facility] ST[facility] 22591, 163, cm, 04/04/20 13:24:00 EDT, Height, 48, kg, 12/13/18 14:17:00 EDT, Dry Weight Start Date: 06/22/20 Stop Date: 07/22/20 Status: Ordered Rid Pediculicide 0.33%-4% topical shampoo 1 applicator, Topically, Once, as directed on package labeling, # 118 mL, 1 Refills, Soft Stop, 10/12/19 14:24:00 EDT, [facility]/pharmacy #[id number], 1 applicator Topically Once,Instr:as directed on package labeling, 163, cm, 04/20/19 15:52:00 EDT, Height, 48, k... Start Date: 10/12/19 Status: Ordered valACYclovir 500 mg oral tablet 1,000 mg, 2, tablet, By Mouth, Daily, for 30 days, # 60 tablet, Refills 5, Tot. Refills 5, Acute 10/26/20 14:54:00 EDT, 04/29/20 14:54:00 EDT, Route to Pharmacy Electronically, [facility]/pharmacy #[id number], 163, cm, 04/04/20 13:24:00 EDT, [...]
--- OUTSIDE RECORDS SUMMARY | 2023-03-21 07:58 | XMS_ITS | Continuity of Care Document ---
Author Name Unknown Organization [facility] Address [address] [place] [address]- Care Team Providers Care Pick Up Operator Name Role Phone Yael Crowe MD Primary Care Physician Encounter [facility] NBR [id number] Date(s): 04/20/19 - 09/05/19 [email or web address] [address] [place] [address]- Attending Physician: Yael Crowe MD Allergies, Adverse Reactions, Alerts No Known Medication Allergies Immunizations Given and Recorded Vaccine Date Status Refusal Reason influenza virus vaccine, inactivated 1, 2 04/20/19 Given Measles/Mumps/Rubella Virus Vaccine 07/25/13 Given tetanus/diphtheria/pertussis, acel(Tdap) 05/25/13 Given 1Result Comment: [facility]# [id number] 2Result Comment: charted on wrong pt. Medications [...] Status Health Status Inform ant Back pain(Confirmed) 1/3/08 Active Bipolar(Confirmed) 07/10/07 Active Chronic post-traumatic stres [...]
--- OUTSIDE RECORDS SUMMARY | 2023-03-21 07:58 | XMS_ITS | Continuity of Care Document ---
Author Name Unknown Organization [facility] Address [address] [place] [address]- Care Team Providers Care Higher Level Teaching Assistant Name Role Phone Sebastien HURST, Yael Fields Primary Care Physician Encounter [facility] NBR [id number] Date(s): 06/21/20 - 07/21/20 [facility] [address] [place] [address]- Allergies, Adverse Reactions, Alerts No Known Medication Allergies Immunizations Given and Recorded Vaccine Date Status Refusal Reason influenza virus vaccine, inactivated 1, 2 04/20/19 Given Measles/Mumps/Rubella Virus Vaccine 07/25/13 Given tetanus/diphtheria/pertussis, acel(Tdap) 05/25/13 Given 1Result Comment: [facility]# [id number] 2Result Comment: charted on wrong pt. Medications [...] tablet, 1 Refills, Maintenance, 06/22/20 8:37:00 EST, [facility] 15996, 163, cm, 04/04/20 13:24:00 EDT, Height, 48, kg, 12/13/18 14:17:00 EDT, Dry Weight Start Date: 06/22/20 Stop Date: 07/22/20 Status: Ordered Rid Pediculicide 0.33%-4% topical shampoo 1 applicator, Topically, Once, as directed on package labeling, # 118 mL, 1 Refills, Soft Stop, 10/12/19 14:24:00 EDT, [facility]/pharmacy #[id number], 1 applicator Topically Once,Instr:as directed on package labeling, 163, cm, 04/20/19 15:52:00 EDT, Height, 48, k... Start Date: 10/12/19 Status: Ordered valACYclovir 500 mg oral tablet 1,000 mg, 2, tablet, By Mouth, Daily, for 30 days, # 60 tablet, Refills 5, Tot. Refills 5, Acute 10/26/20 14:54:00 EDT, 04/29/20 14:54:00 EDT, Route to Pharmacy Electronically, [facility]/pharmacy #[id number], 163, cm, 04/04/20 13:24:00 EDT, [...]
--- OUTSIDE RECORDS SUMMARY | 2023-03-21 07:58 | XMS_ITS | Continuity of Care Document ---
Author Name Unknown Organization [facility] Address [address] [place] [address]- Care Team Providers Care Home Security Alarm Installer Name Role Phone Sebastien HURST, Yael Fields Primary Care Physician Encounter [facility] NBR [id number] Date(s): 03/03/20 - 04/02/20 [facility] [address] [place] [address]- Allergies, Adverse Reactions, Alerts No Known Medication Allergies Immunizations Given and Recorded Vaccine Date Status Refusal Reason influenza virus vaccine, inactivated 1, 2 04/20/19 Given Measles/Mumps/Rubella Virus Vaccine 07/25/13 Given tetanus/diphtheria/pertussis, acel(Tdap) 05/25/13 Given 1Result Comment: [facility]# [id number] 2Result Comment: charted on wrong pt. Medications [...]
--- OUTSIDE RECORDS SUMMARY | 2023-03-21 07:58 | XMS_ITS | Continuity of Care Document ---
Author Name Unknown Organization [facility] Address [address] [place] [address]- Care Team Providers Care High School Music Teacher Name Role Phone Yael Crowe MD Primary Care Physician [phone] Encounter [facility] Date(s): 03/31/21 - 04/30/21 [facility] [address] [place] [address]- [place] Allergies, Adverse Reactions, Alerts No Known Medication Allergies Immunizations Given and Recorded Vaccine Date Status Refusal Reason influenza virus vaccine, inactivated 1, 2 04/20/19 Given Measles/Mumps/Rubella Virus Vaccine 07/25/13 Given tetanus/diphtheria/pertussis, acel(Tdap) 05/25/13 Given 1Result Comment: [facility]# [id number] 2Result Comment: charted on wrong pt. Medications [...] a schedule II opioid drug., 163, cm, . Start Date: 03/08/21 Status: Ordered omeprazole 20 mg oral delayed release tablet 1 tablet = 20 mg, By Mouth, Daily, # 30 tablet, 6 Refills, Maintenance, 10/17/20 14:20:00 EDT, CR Tablet, [facility]/pharmacy #[id number], Partial fill upon patient request if the prescription is for a schedule II opioid drug., 163, cm, 10/17/20 14:06:00 EDT, [facility]. Start Date: 10/17/20 Stop Date: 05/15/21 Status: Ordered ondansetron 4 mg oral tablet 1 tablet, By Mouth, Every 12 hours, PRN NEEDED FOR NAUSEA AND VOMITING FOR, # 60 tablet, 1 Refills, Maintenance, 06/22/20 8:37:00 EST, [facility] ST[facility] 16726, 163, cm, 04/04/20 13:24:00 EDT, Height, 48, kg, 12/13/18 14:17:00 EDT, Dry Weight Start Date: 06/22/20 Stop Date: 07/22/20 Status: Ordered Rid Pediculicide 0.33%-4% topical shampoo 1 applicator, Topically, Once, as directed on package labeling, # 118 mL, 1 Refills, Soft Stop, 10/12/19 14:24:00 EDT, [facility]/pharmacy #[id number], 1 applicator Topically Once,Instr:as directed on package labeling, 163, cm, 04/20/19 15:52:00 EDT, Height, 48, k... Start Date: 10/12/19 Status: Ordered tiZANidine 4 mg oral tablet 1, tablet, By Mouth, Every 8 hours, # 90 tablet, Refills 0, Route to Pharmacy Electronically, [facility] 27439, 163, cm, 03/06/21 15:24:00 EDT, Height Start Date: 03/29/21 Status: Ordered valACYclovir 500 mg oral tablet 1,000 mg, 2, tablet, By Mouth, Daily, for 30 days, # 60 tablet, Refills 5, Tot. Refills 5, Acute 09/13/21 14:19:00 EST, 03/17/21 14:19:00 EDT, Route to Pharmacy Electronically, [facility]/pharmacy #[id number], 163, cm, 03/06/21 [...]
--- OUTSIDE RECORDS SUMMARY | 2023-03-21 07:58 | XMS_ITS | Continuity of Care Document ---
Author Name Unknown Organization [facility] Address [address] [place] [address]- Care Team Providers Care Executive Communications Manager Name Role Phone Sebastien HURST, Yael Fields Primary Care Physician [id number] Date(s[facility] 11/07/20 - [facility]07[facility] [address] [place] [address]- Allergies, Adverse Reactions, Alerts No Known Medication Allergies Immunizations Given and Recorded Vaccine Date Status Refusal Reason influenza virus vaccine, inactivated 1, 2 04/20/19 Given Measles/Mumps/Rubella Virus Vaccine 07/25/13 Given tetanus/diphtheria/pertussis, acel(Tdap) 05/25/13 Given 1Result Comment: [facility]# [id number] 2Result Comment: charted on wrong pt. Medications acetaminophen 325 mg oral tablet 650 mg, By Mouth, Every 6 hours, PRN, Refills 0, Maintenance, Pain , Mild Pain , Moderate, 12/15/18 13:27:49 EDT Start Date: 12/15/18 Status: Ordered Lamotrigine 100 mg, By Mouth, Daily, Refills 0, Maintenance, 12/13/18 14:51:11 EDT Start Date: 12/13/18 Status: Ordered LORazepam 1 mg oral tablet See Instructions, 1 tablet prior to test., # 1 each, 0 Refills, Acute 12/08/20 13:02:00 EDT, 11/07/20 13:02:00 EDT, [facility]/pharmacy #7125, Partial fill upon patient request if the prescription is for a schedule II opioid drug., 163, cm, 10/17/20 14:06:00... Start Date: 11/07/20 Stop Date: 12/08/20 Status: Ordered omeprazole 20 mg oral delayed release tablet 1 tablet = 20 mg, By Mouth, Daily, # 30 tablet, 6 Refills, Maintenance, 10/17/20 14:20:00 EDT, CR Tablet, [facility]/pharmacy #0488, Partial fill upon patient request if the prescription is for a schedule II opioid drug., 163, cm, 10/17/20 14:06:00 EDT, [facility]... Start Date: 10/17/20 Stop Date: 05/15/21 Status: Ordered ondansetron 4 mg oral tablet 1 tablet, By Mouth, Every 12 hours, PRN NEEDED FOR NAUSEA AND VOMITING FOR, # 60 tablet, 1 Refills, Maintenance, 06/22/20 8:37:00 EST, [facility], 163, cm, 04/04/20 13:24:00 EDT, Height, 48, [...] 48, k... Start Date: 10/12/19 Status: Ordered Problem List Condition Effective Dates [...]
--- OUTSIDE RECORDS SUMMARY | 2023-03-21 07:58 | XMS_ITS | Continuity of Care Document ---
Author Name Unknown Organization [facility] Address [address] [place] [address]- Care Team Providers Care Engraver Copperplate Name Role Phone Sebastien HURST, Yael M Primary Care Physician [phone] Encounter [facility] Date(s): 03/06/21 - 04/05/[address] [address]- Attending Physician: Drew Ruffin Admitting Physician: AdmtrDrew Referring Physician: Admtr, ArHali Allergies, Adverse Reactions, Alerts No Known Medication Allergies Immunizations Given and Recorded Vaccine Date Status Refusal Reason influenza virus vaccine, inactivated 1, 2 04/20/19 Given Measles/Mumps/Rubella Virus Vaccine 07/25/13 Given tetanus/diphtheria/pertussis, acel(Tdap) 05/25/13 Given 1Result Comment: [facility]# [id number] 2Result Comment: charted on wrong pt. Medications [...] Refills, Maintenance, 10/17/20 14:20:00 EDT, CR Tablet, [facility]/pharmacy #[id number], Partial fill upon patient request if the prescription is for a schedule II opioid drug., 163, cm, 10/17/20 14:06:00 EDT, Heig... Start Date: 10/17/20 Stop Date: 05/15/21 Status: Ordered ondansetron 4 mg oral tablet 1 tablet, By Mouth, Every 12 hours, PRN NEEDED FOR NAUSEA AND VOMITING FOR, # 60 tablet, 1 Refills, Maintenance, 06/22/20 8:37:00 EST, [facility] STORE [id number], 163, cm, 04/04/20 13:24:00 EDT, Height, 48, kg, 12/13/18 14:17:00 EDT, Dry Weight Start Date: 06/22/20 Stop Date: 07/22/20 Status: Ordered Rid Pediculicide 0.33%-4% topical shampoo 1 applicator, Topically, Once, as directed on package labeling, # 118 mL, 1 Refills, Soft Stop, 10/12/19 14:24:00 EDT, [facility]/pharmacy #[id number], 1 applicator Topically Once,Instr:as directed on package labeling, 163, cm, 04/20/19 15:52:00 EDT, Height, 48, k... Start Date: 10/12/19 Status: Ordered tiZANidine 4 mg oral tablet 1, tablet, By Mouth, Every 8 hours, # 90 tablet, Refills 0, Route to Pharmacy Electronically, [facility] STORE [id number], 163, cm, 03/06/21 15:24:00 EDT, Height Start Date: 03/29/21 Status: Ordered valACYclovir 500 mg oral tablet 1,000 mg, 2, tablet, By Mouth, Daily, for 30 days, # 60 tablet, Refills 5, Tot. Refills 5, Acute 09/13/21 14:19:00 EST, 03/17/21 14:19:00 EDT, Route to Pharmacy Electronically, [facility]/pharmacy #[id number], 163, cm, 03/06/21 15:24:00 EDT, [...]
--- OUTSIDE RECORDS SUMMARY | 2023-03-21 07:58 | XMS_ITS | Continuity of Care Document ---
Author Name Unknown Organization [facility] Address Unknown Care Team Providers Care Deck Lid Fitter Name Role Phone Sebastien HURST, Yael Fields Primary Care Physician [phone] Encounter [facility] Date(s): 07/12/21 - 08/11/21 [facility] Allergies, Adverse Reactions, Alerts No Known Medication Allergies Immunizations Given and Recorded Vaccine Date Status Refusal Reason influenza virus vaccine, inactivated 1, 2 04/20/19 Given Measles/Mumps/Rubella Virus Vaccine 07/25/13 Given tetanus/diphtheria/pertussis, acel(Tdap) 05/25/13 Given 1Result Comment: [facility]# [id number] 2Result Comment: charted on wrong pt. Medications [...] Refills, Maintenance, 10/17/20 14:20:00 EDT, CR Tablet, [id number], Partial fill upon patient request if the prescription is for a schedule II opioid drug., 163, cm, 10/17/20 14:06:00 EDT, Heig... Start Date: 10/17/20 Stop Date: 05/15/21 Status: Ordered ondansetron 4 mg oral tablet 1 tablet, By Mouth, Every 12 hours, PRN NEEDED FOR NAUSEA AND VOMITING FOR, # 60 tablet, 1 Refills, Maintenance, 06/22/20 8:37:00 EST, [facility] STORE 17525, 163, cm, 04/04/20 13:24:00 EDT, Height, 48, kg, 12/13/18 14:17:00 EDT, Dry Weight Start Date: 06/22/20 Stop Date: 07/22/20 Status: Ordered Rid Pediculicide 0.33%-4% topical shampoo 1 applicator, Topically, Once, as directed on package labeling, # 118 mL, 1 Refills, Soft Stop, 10/12/19 14:24:00 EDT, [facility]/pharmacy #[id number], 1 applicator Topically Once,Instr:as directed on package labeling, 163, cm, 04/20/19 15:52:00 EDT, Height, 48, k... Start Date: 10/12/19 Status: Ordered tiZANidine 4 mg oral tablet 1, tablet, By Mouth, Every 8 hours, # 90 tablet, Refills 0, Route to Pharmacy Electronically, [facility] STORE [address]15, 163, cm, 03/06/21 15:24:00 EDT, Height Start Date: 03/29/21 Status: Ordered valACYclovir 500 mg oral tablet 1,000 mg, 2, tablet, By Mouth, Daily, for 30 days, # 60 tablet, Refills 5, Tot. Refills 5, Acute 09/13/21 14:19:00 EST, 03/17/21 14:19:00 EDT, Route to Pharmacy Electronically, [facility]/pharmacy #[id number], 163, cm, 03/06/21 15:24:00 EDT, [...]
--- OUTSIDE RECORDS SUMMARY | 2023-03-21 07:58 | XMS_ITS | Continuity of Care Document ---
Author Name Unknown Organization [facility] Address [address] [place] [address]- Care Team Providers Care Manager Energy Name Role Phone Sebastien HURST, Yael Fields Primary Care Physician [phone] Encounter [facility] NBR [id number] Date(s): 02/04/20 - 03/05/20 [facility] [address] [address]- Attending Physician: Drew Ruffin Admitting Physician: Drew Ruffin Referring Physician: AdmtrDrew Allergies, Adverse Reactions, Alerts No Known Medication Allergies Immunizations Given and Recorded Vaccine Date Status Refusal Reason influenza virus vaccine, inactivated 1, 2 04/20/19 Given Measles/Mumps/Rubella Virus Vaccine 07/25/13 Given tetanus/diphtheria/pertussis, acel(Tdap) 05/25/13 Given 1Result Comment: [facility]# [id number] 2Result Comment: charted on wrong pt. Medications [...] 1 Refills, Soft Stop, 10/12/19 14:24:00 EDT, [facility]/pharmacy #[id number], 1 applicator Topically Once,Instr:as directed [...]
--- OUTSIDE RECORDS SUMMARY | 2023-03-21 07:58 | XMS_ITS | Continuity of Care Document ---
Author Name Unknown Organization [facility] Address [address] [place] [address]- Care Team Providers Care Business Communications Instructor Name Role Phone Yael Crowe MD Primary Care Physician [phone] [id number] Date(s): 12/16/19 - 12/23/[facility] [address] [place] [address]- Attending Physician: Yael rCowe MD Allergies, Adverse Reactions, Alerts No Known Medication Allergies Immunizations Given and Recorded Vaccine Date Status Refusal Reason influenza virus vaccine, inactivated 1, 2 04/20/19 Given Measles/Mumps/Rubella Virus Vaccine 07/25/13 Given tetanus/diphtheria/pertussis, acel(Tdap) 05/25/13 Given 1Result Comment: [facility]# [id number] 2Result Comment: charted on wrong pt. Medications [...] 1 Refills, Soft Stop, 10/12/19 14:24:00 EDT, [facility]/pharmacy #[id number], 1 applicator Topically Once,Instr:as directed [...] Active Cervicalgia of occipito-atla nto-axial region(Confirmed) Active Vital Signs Most recent to oldest [Reference Range]: 1 Height 163 cm (12/15/19 11:17 AM) Social History Social History Type Response Smoking Status Former smoker, quit more than 30 days ago; Tobacco user in household: No; Type: Cigarettes; Interested in cessation: No entered on: 08/01/18 Sex Female
--- OUTSIDE RECORDS SUMMARY | 2023-03-21 07:58 | XMS_ITS | Continuity of Care Document ---
Author Name Unknown Organization [facility] Address [address] [place] [address]- Care Team Providers Care Kier Hand Name Role Phone Sebastien HURST, Yael Fields Primary Care Physician Encounter [facility] NBR [id number] Date(s): 03/09/20 - 04/08/20 [facility] Adult Medicine [address] [place] [address]- Allergies, Adverse Reactions, Alerts No Known Medication Allergies Immunizations Given and Recorded Vaccine Date Status Refusal Reason influenza virus vaccine, inactivated 1, 2 04/20/19 Given Measles/Mumps/Rubella Virus Vaccine 07/25/13 Given tetanus/diphtheria/pertussis, acel(Tdap) 05/25/13 Given 1Result Comment: [facility]# [id number] 2Result Comment: charted on wrong pt. Medications [...] tablet = 4 mg, By Mouth, Every 12 hours, PRN Nausea & Vomiting, # 60 tablet, 1 Refills, Maintenance, 04/04/20 14:16:00 EDT, Tablet, [id number], 163, cm, 04/04/20 13:24:00 EDT, Height, 48, kg, 12/13/18 14:17:00 EDT, Dry Weight Start Date: 04/04/20 Stop Date: 06/03/20 Status: Ordered Problem List Condition Effective Dates [...]
--- OUTSIDE RECORDS SUMMARY | 2023-03-21 07:58 | XMS_ITS | Continuity of Care Document ---
Author Name Unknown Organization [facility] Address [address] [place] [address]- Care Team Providers Care Access Developer Name Role Phone Sebastien HURST, Yael Fields Primary Care Physician Encounter [facility] NBR [id number] Date(s): 03/15/20 - 04/14/20 [facility] [address] [place] [address]- Allergies, Adverse Reactions, Alerts No Known Medication Allergies Immunizations Given and Recorded Vaccine Date Status Refusal Reason influenza virus vaccine, inactivated 1, 2 04/20/19 Given Measles/Mumps/Rubella Virus Vaccine 07/25/13 Given tetanus/diphtheria/pertussis, acel(Tdap) 05/25/13 Given 1Result Comment: [facility]# [id number] 2Result Comment: charted on wrong pt. Medications [...]
--- OUTSIDE RECORDS SUMMARY | 2023-03-21 07:58 | XMS_ITS | Continuity of Care Document ---
Author Name Unknown Organization [facility] Address [address] [place] [address]- Care Team Providers Care Paper Core Machine Operator Name Role Phone Sebastien HURST, Yael Fields Primary Care Physician [phone] Encounter [facility] Date(s): 02/07/21 - 03/09/[address] [address]- Attending Physician: Drew Ruffin Admitting Physician: Drew Ruffin Referring Physician: AdmtrDrew Allergies, Adverse Reactions, Alerts No Known Medication Allergies Immunizations Given and Recorded Vaccine Date Status Refusal Reason influenza virus vaccine, inactivated 1, 2 04/20/19 Given Measles/Mumps/Rubella Virus Vaccine 07/25/13 Given tetanus/diphtheria/pertussis, acel(Tdap) 05/25/13 Given 1Result Comment: [facility]# [id number] 2Result Comment: charted on wrong pt. Medications [...] Maintenance, 10/17/20 14:20:00 EDT, CR Tablet, [facility]/pharmacy #[id number], Partial fill upon patient request if the prescription is for a schedule II opioid drug., 163, cm, 10/17/20 14:06:00 EDT, Heig... Start Date: 10/17/20 Stop Date: 05/15/21 Status: Ordered ondansetron 4 mg oral tablet 1 tablet, By Mouth, Every 12 hours, PRN NEEDED FOR NAUSEA AND VOMITING FOR, # 60 tablet, 1 Refills, Maintenance, 06/22/20 8:37:00 EST, [facility] STORE 68981, 163, cm, 04/04/20 13:24:00 EDT, Height, 48, kg, 12/13/18 14:17:00 EDT, Dry Weight Start Date: 06/22/20 Stop Date: 07/22/20 Status: Ordered Rid Pediculicide 0.33%-4% topical shampoo 1 applicator, Topically, Once, as directed on package labeling, # 118 mL, 1 Refills, Soft Stop, 10/12/19 14:24:00 EDT, [facility]/pharmacy #[id number], 1 applicator Topically Once,Instr:as directed on package labeling, 163, cm, 04/20/19 15:52:00 EDT, Height, 48, k... Start Date: 10/12/19 Status: Ordered tiZANidine 4 mg oral tablet 4 mg, 1, tablet, By Mouth, Every 8 hours, # 90 tablet, Refills 0, Tot. Refills 0, Maintenance, 03/08/21 9:33:00 EDT, Route to Pharmacy Electronically, [facility]/pharmacy #[id number], Partial fill upon patient request if the prescription is for a schedule II opioi... Start Date: 03/08/21 Status: Ordered Problem List Condition Effective Dates [...]
--- OUTSIDE RECORDS SUMMARY | 2023-03-21 07:58 | XMS_ITS | Continuity of Care Document ---
Author Name Unknown Organization [facility] o[facility] Address [address] [place] [address]- Care Team Providers Care Fire Regulator Name Role Phone Sebastien HURST, Yael Fields Primary Care Physician Encounter [facility] Date(s): 11/25/20 - 12/25/20 [facility] [address] [place] [address]- Attending Physician: Drew Ruffin Admitting Physician: Drew Ruffin Referring Physician: AdmtrDrew Allergies, Adverse Reactions, Alerts No Known Medication Allergies Immunizations Given and Recorded Vaccine Date Status Refusal Reason influenza virus vaccine, inactivated 1, 2 04/20/19 Given Measles/Mumps/Rubella Virus Vaccine 07/25/13 Given tetanus/diphtheria/pertussis, acel(Tdap) 05/25/13 Given 1Result Comment: [facility]# [id number] 2Result Comment: charted on wrong pt. Medications [...] Maintenance, 10/17/20 14:20:00 EDT, CR Tablet, [id number], Partial fill upon patient request if the prescription is for a schedule II opioid drug., 163, cm, 10/17/20 14:06:00 EDT, Heig... Start Date: 10/17/20 Stop Date: 05/15/21 Status: Ordered ondansetron 4 mg oral tablet 1 tablet, By Mouth, Every 12 hours, PRN NEEDED FOR NAUSEA AND VOMITING FOR, # 60 tablet, 1 Refills, Maintenance, 06/22/20 8:37:00 EST, [facility], 163, cm, 04/04/20 13:24:00 EDT, Height, 48, [...]
--- OUTSIDE RECORDS SUMMARY | 2023-03-21 07:58 | XMS_ITS | Continuity of Care Document ---
Author Name Unknown Organization [facility] Address [address] [place] [address]- Care Team Providers Care Middle Stitcher Name Role Phone Sebastien HURST, Yael Fields Primary Care Physician [id number] Date[facility] [address] [place] [address]- Allergies, Adverse Reactions, Alerts No Known Medication Allergies Immunizations Given and Recorded Vaccine Date Status Refusal Reason influenza virus vaccine, inactivated 1, 2 04/20/19 Given Measles/Mumps/Rubella Virus Vaccine 07/25/13 Given tetanus/diphtheria/pertussis, acel(Tdap) 05/25/13 Given 1Result Comment: [facility]# [id number] 2Result Comment: charted on wrong pt. Medications acetaminophen 325 mg oral tablet 650 mg, By Mouth, Every 6 hours, PRN, Refills 0, Maintenance, Pain , Mild Pain , Moderate, 12/15/18 13:27:49 EDT Start Date: 12/15/18 Status: Ordered diazepam 5 mg oral tablet 5 mg, 1, tablet, By Mouth, Daily, for 30 days, dx: anxiety, # 30 tablet, Refills 0, Tot. Refills 0,Acute 12/07/20 15:14:00 EDT, 11/07/20 15:14:00 EDT, Route to Pharmacy Electronically, [facility]/pharmacy #[id number], Partial fill upon patient request if the pres... Start Date: 11/07/20 Stop Date: 12/07/20 Status: Ordered Lamotrigine 100 mg, By Mouth, Daily, Refills 0, Maintenance, 12/13/18 14:51:11 EDT Start Date: 12/13/18 Status: Ordered LORazepam 1 mg oral tablet See Instructions, 1 tablet prior to test., # 1 each, 0 Refills, Acute 12/08/20 13:02:00 EDT, 11/07/20 13:02:00 EDT, [facility]/pharmacy #[id number], Partial fill upon patient request if the prescription is for a schedule II opioid drug., 163, cm, 10/17/20 14:06:00... Start Date: 11/07/20 Stop Date: 12/08/20 Status: Ordered omeprazole 20 mg oral delayed release tablet 1 tablet = 20 mg, By Mouth, Daily, # 30 tablet, 6 Refills, Maintenance, 10/17/20 14:20:00 EDT, CR Tablet, [facility]/pharmacy #[id number], Partial fill upon patient request if the prescription is for a schedule II opioid drug., 163, cm, 10/17/20 14:06:00 EDT, [facility]... Start Date: 10/17/20 Stop Date: 05/15/21 Status: Ordered ondansetron 4 mg oral tablet 1 tablet, By Mouth, Every 12 hours, PRN NEEDED FOR NAUSEA AND VOMITING FOR, # 60 tablet, 1 Refills, Maintenance, 06/22/20 8:37:00 EST, [facility] STORE 95973, 163, cm, 04/04/20 13:24:00 EDT, Height, 48, kg, 12/13/18 14:17:00 EDT, Dry Weight Start Date: 06/22/20 Stop Date: 07/22/20 Status: Ordered Rid Pediculicide 0.33%-4% topical shampoo 1 applicator, Topically, Once, as directed on package labeling, # 118 mL, 1 Refills, Soft Stop, 10/12/19 14:24:00 EDT, [facility]/pharmacy #[id number], 1 applicator Topically Once,Instr:as directed [...]
--- OUTSIDE RECORDS SUMMARY | 2023-03-21 07:58 | XMS_ITS | Continuity of Care Document ---
Author Name Unknown Organization [facility] Address [address] [place] [address]- Care Team Providers Care Machine Baster Name Role Phone Yael Crowe MD Primary Care Physician [id number] Date(s): 03/10/20 - 04/20/20 [facility] [address] [address]- Attending Physician: Yael Crowe MD Allergies, Adverse Reactions, Alerts No Known Medication Allergies Immunizations Given and Recorded Vaccine Date Status Refusal Reason influenza virus vaccine, inactivated 1, 2 04/20/19 Given Measles/Mumps/Rubella Virus Vaccine 07/25/13 Given tetanus/diphtheria/pertussis, acel(Tdap) 05/25/13 Given 1Result Comment: [facility]# [id number] 2Result Comment: charted on wrong pt. Medications [...]
--- OUTSIDE RECORDS SUMMARY | 2023-03-21 07:58 | XMS_ITS | Continuity of Care Document ---
Author Name Unknown Organization [facility] Address [address] [place] [address]- Care Team Providers Care Train Clerk Name Role Phone Natalie Aaron MD Primary Care Physician [phone] Encounter [facility] R [id number] Date(s): 08/23/21 - 12/21/[address] [address]- Attending Physician: Neha Zabala MD Admitting Physician: Neha Zabala MD Referring Physician: Yael Crowe MD Allergies, Adverse Reactions, Alerts No Known Medication Allergies Immunizations Given and Recorded Vaccine Date Status Refusal Reason influenza virus vaccine, inactivated 1, 2 04/20/19 Given Measles/Mumps/Rubella Virus Vaccine 07/25/13 Given tetanus/diphtheria/pertussis, acel(Tdap) 05/25/13 Given 1Result Comment: [facility]# [id number] 2Result Comment: charted on wrong pt. Medications [...] Maintenance, 10/17/20 14:20:00 EDT, CR Tablet, [facility], Partial fill upon patient request if the prescription is for a schedule II opioid drug., 163, cm, 10/17/20 14:06:00 EDT, Heig... Start Date: 10/17/20 Stop Date: 05/15/21 Status: Ordered ondansetron 4 mg oral tablet 1 tablet, By Mouth, Every 12 hours, PRN NEEDED FOR NAUSEA AND VOMITING FOR, # 60 tablet, 1 Refills, Maintenance, 06/22/20 8:37:00 EST, [email or web address]1870, 163, cm, 04/04/20 13:24:00 EDT, Height, 48, [...] tablet, Refills 0, Route to Pharmacy Electronically, [email or web address]ORE 82915, 163, cm, 03/06/21 15:24:00 EDT, Height Start Date: 03/29/21 Status: Ordered valACYclovir 500 mg oral tablet 2, tablet, By Mouth, Daily, # 180 tablet, Refills 1, Route to Pharmacy Electronically, [email or web address] 35784, 165.1, cm, 05/24/21 17:21:00 EST, Height, 40.9, [...]
--- OUTSIDE RECORDS SUMMARY | 2023-03-21 07:58 | XMS_ITS | Continuity of Care Document ---
Author Name Unknown Organization [facility] Address [address] [place] [address]- Care Team Providers Care Telecommunication Tower Technician Name Role Phone Sebastien HURST, Yael Fields Primary Care Physician Encounter [facility] NBR [id number] Date(s): 10/17/20 - [facility] [address] [address]- Encounter Diagnosis Epigastric pain(Discharge Diagnosis) - 10/17/20 IBS (irritable bowel syndrome)(Discharge Diagnosis) - 10/17/20 Attending Physician: Stew Tyson MD Referring Physician: Derrick FOY, Natalya Fields Allergies, Adverse Reactions, Alerts No Known Medication Allergies Immunizations Given and Recorded Vaccine Date Status Refusal Reason influenza virus vaccine, inactivated 1, 2 04/20/19 Given Measles/Mumps/Rubella Virus Vaccine 07/25/13 Given tetanus/diphtheria/pertussis, acel(Tdap) 05/25/13 Given 1Result Comment: [facility]# [id number] 2Result Comment: charted on wrong pt. Medications [...] Refills, Maintenance, 10/17/20 14:20:00 EDT, CR Tablet, [facility]/pharmacy #[id number], Partial fill upon patient request if the prescription is for a schedule II opioid drug., 163, cm, 10/17/20 14:06:00 EDT, Heig... Start Date: 10/17/20 Stop Date: 05/15/21 Status: Ordered ondansetron 4 mg oral tablet 1 tablet, By Mouth, Every 12 hours, PRN NEEDED FOR NAUSEA AND VOMITING FOR, # 60 tablet, 1 Refills, Maintenance, 06/22/20 8:37:00 EST, [facility] STORE 40401, 163, cm, 04/04/20 13:24:00 EDT, Height, 48, kg, 12/13/18 14:17:00 EDT, Dry Weight Start Date: 06/22/20 Stop Date: 07/22/20 Status: Ordered Rid Pediculicide 0.33%-4% topical shampoo 1 applicator, Topically, Once, as directed on package labeling, # 118 mL, 1 Refills, Soft Stop, 10/12/19 14:24:00 EDT, [facility]/pharmacy #[id number], 1 applicator Topically Once,Instr:as directed on package labeling, 163, cm, 04/20/19 15:52:00 EDT, Height, 48, k... Start Date: 10/12/19 Status: Ordered valACYclovir 500 mg oral tablet 1,000 mg, 2, tablet, By Mouth, Daily, for 30 days, # 60 tablet, Refills 5, Tot. Refills 5, Acute 10/26/20 14:54:00 EDT, 04/29/20 14:54:00 EDT, Route to Pharmacy Electronically, [facility]/pharmacy #[id number], 163, cm, 04/04/20 13:24:00 EDT, [...] Active Cervicalgia of occipito-atla nto-axial region(Confirmed) Active Diagnosis Diagnosis Type Effective Dates Health Status Clinical Service Informant Epigastric pain Discharge Diagnosis 10/17/20 IBS (irritable bowel syndrome) Discharge Diagnosis 10/17/20 Vital Signs Most recent to oldest [Reference Range]: 1 Height 163 cm (10/17/20 2:06 PM) Weight 45.6 kg (10/17/20 2:06 PM) Oxygen Saturation [94-100 %] 98 % (10/17/20 2:06 PM) Pulse Rate [55-90 bpm] 78 bpm (10/17/20 2:06 PM) Body Mass Index [18.5-24.99] 17.16 *L* (10/17/20 2:06 PM) Blood Pressure [90-138/55-84 mm Hg] 102/ 66mm Hg (10/17/20 2:06 PM) Respiratory Rate [16-30 br/min] 16 br/mi n (10/17/20 2:06 PM) Temperature [96.8-100.4 DegF] 96.9 DegF (10/17/20 2:06 PM) Mode of Delivery (Oxygen) Room air (10/17/20 2:06 PM) Blood pressure sites Arm, left (10/17/20 2:06 PM) Temperature Route Temporal (10/17/20 2:06 PM) Weight Obtained Via Standing scale (10/17/20 2:06 PM) Social History Social History Type Response Smoking Status Former smoker, quit more than 30 days ago; Tobacco user in household: No; Type: Cigarettes; Interested in cessation: No entered on: 08/01/18 Sex Female
--- OUTSIDE RECORDS SUMMARY | 2023-03-21 07:58 | XMS_ITS | Continuity of Care Document ---
Author Name [facility] Address [address] [place] [address]- Care Team Providers Care Case Management Manager Name Role Phone Yael Crowe MD Primary Care Physician [phone] [facility] NBR [id number] Date(s): 11/07/20 - [facility] [address] [place] [address]- Attending Physician: Yael Crowe MD Allergies, Adverse Reactions, Alerts No Known Medication Allergies Immunizations Given and Recorded Vaccine Date Status Refusal Reason influenza virus vaccine, inactivated 1, 2 04/20/19 Given Measles/Mumps/Rubella Virus Vaccine 07/25/13 Given tetanus/diphtheria/pertussis, acel(Tdap) 05/25/13 Given 1Result Comment: [facility]# [id number] 2Result Comment: charted on wrong pt. Medications [...] 11/07/20 15:14:00 EDT, Route to Pharmacy Electronically, [facility]/pharmacy #[id number], Partial fill upon patient request if the pres... Start Date: 11/07/20 Stop Date: 12/07/20 Status: Ordered Lamotrigine 100 mg, By Mouth, Daily, Refills 0, Maintenance, 12/13/18 14:51:11 EDT Start Date: 12/13/18 Status: Ordered LORazepam 1 mg oral tablet See Instructions, 1 tablet prior to test., # 1 each, 0 Refills, Acute 12/08/20 13:02:00 EDT, 11/07/20 13:02:00 EDT, [facility]/pharmacy #[id number], Partial fill upon patient request if the prescription is for a schedule II opioid drug., 163, cm, 10/17/20 14:06:00... Start Date: 11/07/20 Stop Date: 12/08/20 Status: Ordered omeprazole 20 mg oral delayed release tablet 1 tablet = 20 mg, By Mouth, Daily, # 30 tablet, 6 Refills, Maintenance, 10/17/20 14:20:00 EDT, CR Tablet, [facility]/pharmacy #[id number], Partial fill upon patient request if the prescription is for a schedule II opioid drug., 163, cm, 10/17/20 14:06:00 EDT, He[facility]... Start Date: 10/17/20 Stop Date: 05/15/21 Status: Ordered ondansetron 4 mg oral tablet 1 tablet, By Mouth, Every 12 hours, PRN NEEDED FOR NAUSEA AND VOMITING FOR, # 60 tablet, 1 Refills, Maintenance, 06/22/20 8:37:00 EST, [facility] STORE 38978, 163, cm, 04/04/20 13:24:00 EDT, Height, 48, kg, 12/13/18 14:17:00 EDT, Dry Weight Start Date: 06/22/20 Stop Date: 07/22/20 Status: Ordered Rid Pediculicide 0.33%-4% topical shampoo 1 applicator, Topically, Once, as directed on package labeling, # 118 mL, 1 Refills, Soft Stop, 10/12/19 14:24:00 EDT, [facility]/pharmacy #[id number], 1 applicator Topically Once,Instr:as [...] oldest [Reference Range]: 1 Height 163 cm (11/07/20 2:29 PM) Social History Social History Type Response Smoking Status Former smoker, quit more than 30 days ago; Tobacco user in household: No; Type: Cigarettes; Interested in cessation: No entered on: 08/01/18 Sex Female
--- OUTSIDE RECORDS SUMMARY | 2023-03-21 07:58 | XMS_ITS | Continuity of Care Document ---
Author Name Unknown Organization [facility] Address [address] [place] [address]- Care Team Providers Care Carbider Name Role Phone Sebastien HURST, Yael Fields Primary Care Physician Encounter [facility] NBR [id number] Date(s): 02/03/20 - 03/04/20 [facility] [address] [place] [address]- Allergies, Adverse Reactions, Alerts No Known Medication Allergies Immunizations Given and Recorded Vaccine Date Status Refusal Reason influenza virus vaccine, inactivated 1, 2 04/20/19 Given Measles/Mumps/Rubella Virus Vaccine 07/25/13 Given tetanus/diphtheria/pertussis, acel(Tdap) 05/25/13 Given 1Result Comment: [facility]# [id number] 2Result Comment: charted on wrong pt. Medications [...]
--- OUTSIDE RECORDS SUMMARY | 2023-03-21 07:58 | XMS_ITS | Continuity of Care Document ---
Author Name Unknown Organization [facility] Address [address] [place] [address]- Care Team Providers Care Vba Developer Name Role Phone Sebastien HURST, Yael Fields Primary Care Physician Encounter [facility] Date(s): 11/07/20 - 12/07/20 [facility] [address] [address]- Attending Physician: Drew Ruffin Admitting Physician: Drew Ruffin Referring Physician: AdmtrDrew Allergies, Adverse Reactions, Alerts No Known Medication Allergies Immunizations Given and Recorded Vaccine Date Status Refusal Reason influenza virus vaccine, inactivated 1, 2 04/20/19 Given Measles/Mumps/Rubella Virus Vaccine 07/25/13 Given tetanus/diphtheria/pertussis, acel(Tdap) 05/25/13 Given 1Result Comment: [facility]# [id number] 2Result Comment: charted on wrong pt. Medications [...] Acute 12/08/20 13:02:00 EDT, 11/07/20 13:02:00 EDT, [facility]/pharmacy #[id number], Partial fill upon patient request if the prescription is for a schedule II opioid drug., 163, cm, 10/17/20 14:06:00... Start Date: 11/07/20 Stop Date: 12/08/20 Status: Ordered omeprazole 20 mg oral delayed release tablet 1 tablet = 20 mg, By Mouth, Daily, # 30 tablet, 6 Refills, Maintenance, 10/17/20 14:20:00 EDT, CR Tablet, [facility]/pharmacy #[id number], Partial fill upon patient request if the prescription is for a schedule II opioid drug., 163, cm, 10/17/20 14:06:00 EDT, He[facility]... Start Date: 10/17/20 Stop Date: 05/15/21 Status: Ordered ondansetron 4 mg oral tablet 1 tablet, By Mouth, Every 12 hours, PRN NEEDED FOR NAUSEA AND VOMITING FOR, # 60 tablet, 1 Refills, Maintenance, 06/22/20 8:37:00 EST, [facility], 163, cm, 04/04/20 13:24:00 EDT, Height, 48, kg, 12/13/18 14:17:00 EDT, Dry Weight Start Date: 06/22/20 Stop Date: 07/22/20 Status: Ordered Rid Pediculicide 0.33%-4% topical shampoo 1 applicator, Topically, Once, as directed on package labeling, # 118 mL, 1 Refills, Soft Stop, 10/12/19 14:24:00 EDT, [facility]/pharmacy #[id number], 1 applicator Topically Once,Instr:as [...]
--- OUTSIDE RECORDS SUMMARY | 2023-03-21 07:59 | XMS_ITS | Continuity of Care Document ---
Author Name Unknown Organization [facility] Address [address] [place] [address]- Care Team Providers Care Secured Entrance Monitor Name Role Phone Yael Crowe MD Primary Care Physician Encounter [facility] NBR [id number] Date(s): 08/03/19 - 09/04/19 [facility] [address] [place] [address]- [facility] Attending Physician: Bhavesh Hansen DC Referring Physician: Yael Crowe MD Allergies, Adverse Reactions, Alerts No Known Medication Allergies Immunizations Given and Recorded Vaccine Date Status Refusal Reason influenza virus vaccine, inactivated 1, 2 04/20/19 Given Measles/Mumps/Rubella Virus Vaccine 07/25/13 Given tetanus/diphtheria/pertussis, acel(Tdap) 05/25/13 Given 1Result Comment: [facility]# [id number] 2Result Comment: charted on wrong pt. Medications [...]
--- OUTSIDE RECORDS SUMMARY | 2023-03-21 07:59 | XMS_ITS | Continuity of Care Document ---
Author Name Unknown Organization [facility] Address [address] [place] [address]- Care Team Providers Care Carpet Journeyman Name Role Phone Yael Crowe MD Primary Care Physician [place] [facility] Date(s): 11/25/20 - 12/02/20 [facility] [address] [place] [address]- Attending Physician: Sven FOY, Mckenna Huang Admitting Physician: Mckenna Machuca NP Referring Physician: Yael Crowe MD Allergies, Adverse Reactions, Alerts No Known Medication Allergies Immunizations Given and Recorded Vaccine Date Status Refusal Reason influenza virus vaccine, inactivated 1, 2 04/20/19 Given Measles/Mumps/Rubella Virus Vaccine 07/25/13 Given tetanus/diphtheria/pertussis, acel(Tdap) 05/25/13 Given 1Result Comment: [facility]# [id number] 2Result Comment: charted on wrong pt. Medications [...] 11/07/20 15:14:00 EDT, Route to Pharmacy Electronically, [facility]/pharmacy #[id number], Partial fill upon patient request if the pres... Start Date: 11/07/20 Stop Date: 12/07/20 Status: Ordered Lamotrigine 100 mg, By Mouth, Daily, Refills 0, Maintenance, 12/13/18 14:51:11 EDT Start Date: 12/13/18 Status: Ordered LORazepam 1 mg oral tablet See Instructions, 1 tablet prior to test., # 1 each, 0 Refills, Acute 12/08/20 13:02:00 EDT, 11/07/20 13:02:00 EDT, [id number], Partial fill upon patient request if the prescription is for a schedule II opioid drug., 163, cm, 10/17/20 14:06:00... Start Date: 11/07/20 Stop Date: 12/08/20 Status: Ordered omeprazole 20 mg oral delayed release tablet 1 tablet = 20 mg, By Mouth, Daily, # 30 tablet, 6 Refills, Maintenance, 10/17/20 14:20:00 EDT, CR Tablet, [facility]/pharmacy #[id number], Partial fill upon patient request if the prescription is for a schedule II opioid drug., 163, cm, 10/17/20 14:06:00 EDT, Heig... Start Date: 10/17/20 Stop Date: 05/15/21 Status: Ordered ondansetron 4 mg oral tablet 1 tablet, By Mouth, Every 12 hours, PRN NEEDED FOR NAUSEA AND VOMITING FOR, # 60 tablet, 1 Refills, Maintenance, 06/22/20 8:37:00 EST, [facility] STORE 10004, 163, cm, 04/04/20 13:24:00 EDT, Height, 48, [...]
--- OUTSIDE RECORDS SUMMARY | 2023-03-21 07:59 | XMS_ITS | Continuity of Care Document ---
Author Name Unknown Organization [facility] Address [address] [place] [address]- Care Team Providers Care Tub Washer Name Role Phone Yael Crowe MD Primary Care Physician Encounter [facility] Date(s): 07/26/20 - [facility]/02/[facility] [address] [place] [address]- Attending Physician: Marlo Henning Allergies, Adverse Reactions, Alerts No Known Medication Allergies Immunizations Given and Recorded Vaccine Date Status Refusal Reason influenza virus vaccine, inactivated 1, 2 04/20/19 Given Measles/Mumps/Rubella Virus Vaccine 07/25/13 Given tetanus/diphtheria/pertussis, acel(Tdap) 05/25/13 Given 1Result Comment: [facility]# [id number] 2Result Comment: charted on wrong pt. Medications [...] tablet, 1 Refills, Maintenance, 06/22/20 8:37:00 EST, [facility] STORE [id number], 163, cm, 04/04/20 13:24:00 EDT, Height, 48, kg, 12/13/18 14:17:00 EDT, Dry Weight Start Date: 06/22/20 Stop Date: 07/22/20 Status: Ordered Rid Pediculicide 0.33%-4% topical shampoo 1 applicator, Topically, Once, as directed on package labeling, # 118 mL, 1 Refills, Soft Stop, 10/12/19 14:24:00 EDT, [facility]/pharmacy #[id number], 1 applicator Topically Once,Instr:as directed on package labeling, 163, cm, 04/20/19 15:52:00 EDT, Height, 48, k... Start Date: 10/12/19 Status: Ordered valACYclovir 500 mg oral tablet 1,000 mg, 2, tablet, By Mouth, Daily, for 30 days, # 60 tablet, Refills 5, Tot. Refills 5, Acute 10/26/20 14:54:00 EDT, 04/29/20 14:54:00 EDT, Route to Pharmacy Electronically, [facility]/pharmacy #[id number], 163, cm, 04/04/20 13:24:00 EDT, [...] oldest [Reference Range]: 1 Height 163 cm (07/26/20 2:45 PM) Weight 46.1 kg (07/26/20 2:45 PM) Oxygen Saturation [94-100 %] 100 % (07/26/20 2:45 PM) Pulse Rate [55-90 bpm] 63 bpm (07/26/20 2:45 PM) Body Mass Index [18.5-24.99] 17.35 *L* (07/26/20 2:45 PM) Blood Pressure [90-138/55-84 mm Hg] 96/4 8mm Hg (07/26/20 2:45 PM) Temperature [96.8-100.4 DegF] 100.2 DegF (07/26/20 2:45 PM) Liters per Minute 0 L/min (07/26/20 2:45 PM) Mode of Delivery (Oxygen) Room air (07/26/20 2:45 PM) Blood pressure sites Arm, left (07/26/20 2:45 PM) Temperature Route Temporal (07/26/20 2:45 PM) Weight Obtained Via Standing scale (07/26/20 2:45 PM) Social History Social History Type Response Smoking Status Former smoker, quit more than 30 days ago; Tobacco user in household: No; Type: Cigarettes; Interested in cessation: No entered on: 08/01/18 Sex Female
--- OUTSIDE RECORDS SUMMARY | 2023-03-21 07:59 | XMS_ITS | Continuity of Care Document ---
Author Name Unknown Organization [facility] Address Unknown Care Team Providers Care Radiographer Cardiac Catheterization Name Role Phone Yael Crowe MD Primary Care Physician [phone] Encounter [facility] Date(s): 04/05/21 - 05/05/21 [facility] Allergies, Adverse Reactions, Alerts No Known Medication Allergies Immunizations Given and Recorded Vaccine Date Status Refusal Reason influenza virus vaccine, inactivated 1, 2 04/20/19 Given Measles/Mumps/Rubella Virus Vaccine 07/25/13 Given tetanus/diphtheria/pertussis, acel(Tdap) 05/25/13 Given 1Result Comment: [facility]# [id number] 2Result Comment: charted on wrong pt. Medications [...] tablet, 0 Refills, Maintenance,03/08/21 9:34:00 EDT, Tablet, [facility]/pharmacy #1972, Partial fill upon patient request if the prescription is for a schedule II opioid drug., 163, cm, . Start Date: 03/08/21 Status: Ordered omeprazole 20 mg oral delayed release tablet 1 tablet = 20 mg, By Mouth, Daily, # 30 tablet, 6 Refills, Maintenance, 10/17/20 14:20:00 EDT, CR Tablet, [facility]/pharmacy #[id number], Partial fill upon patient request if the prescription is for a schedule II opioid drug., 163, cm, 10/17/20 14:06:00 EDT, [facility]. Start Date: 10/17/20 Stop Date: 05/15/21 Status: Ordered ondansetron 4 mg oral tablet 1 tablet, By Mouth, Every 12 hours, PRN NEEDED FOR NAUSEA AND VOMITING FOR, # 60 tablet, 1 Refills, Maintenance, 06/22/20 8:37:00 EST, [facility] ST[facility] 32[facility], 163, cm, 04/04/20 13:24:00 EDT, Height, 48, kg, 12/13/18 14:17:00 EDT, Dry Weight Start Date: 06/22/20 Stop Date: 07/22/20 Status: Ordered Rid Pediculicide 0.33%-4% topical shampoo 1 applicator, Topically, Once, as directed on package labeling, # 118 mL, 1 Refills, Soft Stop, 10/12/19 14:24:00 EDT, [facility]/pharmacy #[id number], 1 applicator Topically Once,Instr:as directed on package labeling, 163, cm, 04/20/19 15:52:00 EDT, Height, 48, k... Start Date: 10/12/19 Status: Ordered tiZANidine 4 mg oral tablet 1, tablet, By Mouth, Every 8 hours, # 90 tablet, Refills 0, Route to Pharmacy Electronically, [facility] 360[facility], 163, cm, 03/06/21 15:24:00 EDT, Height Start Date: 03/29/21 Status: Ordered valACYclovir 500 mg oral tablet 1,000 mg, 2, tablet, By Mouth, Daily, for 30 days, # 60 tablet, Refills 5, Tot. Refills 5, Acute 09/13/21 14:19:00 EST, 03/17/21 14:19:00 EDT, Route to Pharmacy Electronically, [facility]/pharmacy #[id number], 163, cm, 03/06/21 15:24:00 EDT, [...]
--- OUTSIDE RECORDS SUMMARY | 2023-03-21 07:59 | XMS_ITS | Continuity of Care Document ---
Author Name Unknown Organization [facility] Address [address] [place] [address]- Care Team Providers Care Senior Security Architect Name Role Phone Yael Crowe MD Primary Care Physician Encounter [facility] NBR [id number] Date(s): 08/05/19 - 08/15/19 [facility] [address] [place] [address]- [facility] Attending Physician: Drew Ruffin Admitting Physician: Drew Ruffin Referring Physician: Drew Ruffin Allergies, Adverse Reactions, Alerts No Known Medication Allergies Immunizations Given and Recorded Vaccine Date Status Refusal Reason influenza virus vaccine, inactivated 1, 2 04/20/19 Given Measles/Mumps/Rubella Virus Vaccine 07/25/13 Given tetanus/diphtheria/pertussis, acel(Tdap) 05/25/13 Given 1Result Comment: [facility]# [id number] 2Result Comment: charted on wrong pt. Medications [...]
--- OUTSIDE RECORDS SUMMARY | 2023-03-21 07:59 | XMS_ITS | Continuity of Care Document ---
Author Name Unknown Organization [facility] Address [address] [place] [address]- Care Team Providers Care Test Equipment Mechanic Name Role Phone Natalie Aaron MD Primary Care Physician Encounter [facility] Date(s): 01/26/22 - 03/07/[address] [address]- Attending Physician: Natalie Aaron MD Admitting Physician: Natalie Aaron MD Referring Physician: Natalie Aaron MD Allergies, Adverse Reactions, Alerts No Known Medication Allergies Immunizations Given and Recorded Vaccine Date Status Refusal Reason influenza virus vaccine, inactivated 1, 2 04/20/19 Given Measles/Mumps/Rubella Virus Vaccine 07/25/13 Given tetanus/diphtheria/pertussis, acel(Tdap) 05/25/13 Given 1Result Comment: [facility]# [id number] 2Result Comment: charted on wrong pt. Medications [...] Refills, Maintenance, 10/17/20 14:20:00 EDT, CR Tablet, [facility]/pharmacy #[id number], Partial fill upon patient request if the prescription is for a schedule II opioid drug., 163, cm, 10/17/20 14:06:00 EDT, Heig... Start Date: 10/17/20 Stop Date: 05/15/21 Status: Ordered ondansetron 4 mg oral tablet 1 tablet, By Mouth, Every 12 hours, PRN NEEDED FOR NAUSEA AND VOMITING FOR, # 60 tablet, 1 Refills, Maintenance, 06/22/20 8:37:00 EST, [facility] 326[facility], 163, cm, 04/04/20 13:24:00 EDT, Height, 48, [...] tablet, Refills 0, Route to Pharmacy Electronically, [facility] 87338, 163, cm, 03/06/21 15:24:00 EDT, Height Start Date: 03/29/21 Status: Ordered valACYclovir 500 mg oral tablet 2, tablet, By Mouth, Daily, # 180 tablet, Refills 1, Route to Pharmacy Electronically, [facility] 83701, 165.1, cm, 05/24/21 17:21:00 EST, Height, 40.9, [...] cessation: No entered on: 08/01/18 Sex Female Care Team Personnel Name: Natalie Aaron MD Address: [address] [place] [address]
--- OUTSIDE RECORDS SUMMARY | 2023-03-21 07:59 | XMS_ITS | Continuity of Care Document ---
Author Name Unknown Organization [facility] Address [address] [place] [address]- Care Team Providers Care Matrix Drier Tender Name Role Phone Yael Crowe MD Primary Care Physician [phone] Encounter [facility] Date(s): 06/02/21 - 09/30/[address] [address]- Attending Physician: Neha Zabala MD Admitting Physician: Neha Zabala MD Referring Physician: Yael Crowe MD Allergies, Adverse Reactions, Alerts No Known Medication Allergies Immunizations Given and Recorded Vaccine Date Status Refusal Reason influenza virus vaccine, inactivated 1, 2 04/20/19 Given Measles/Mumps/Rubella Virus Vaccine 07/25/13 Given tetanus/diphtheria/pertussis, acel(Tdap) 05/25/13 Given 1Result Comment: [facility]# [id number] 2Result Comment: charted on wrong pt. Medications [...] Refills, Maintenance, 10/17/20 14:20:00 EDT, CR Tablet, [facility]/pharmacy #[id number], Partial fill upon patient request if the prescription is for a schedule II opioid drug., 163, cm, 10/17/20 14:06:00 EDT, Heig... Start Date: 10/17/20 Stop Date: 05/15/21 Status: Ordered ondansetron 4 mg oral tablet 1 tablet, By Mouth, Every 12 hours, PRN NEEDED FOR NAUSEA AND VOMITING FOR, # 60 tablet, 1 Refills, Maintenance, 06/22/20 8:37:00 EST, [facility] STORE 87671, 163, cm, 04/04/20 13:24:00 EDT, Height, 48, kg, 12/13/18 14:17:00 EDT, Dry Weight Start Date: 06/22/20 Stop Date: 07/22/20 Status: Ordered Rid Pediculicide 0.33%-4% topical shampoo 1 applicator, Topically, Once, as directed on package labeling, # 118 mL, 1 Refills, Soft Stop, 10/12/19 14:24:00 EDT, [facility]/pharmacy #0969, 1 applicator Topically Once,Instr:as directed on package labeling, 163, cm, 04/20/19 15:52:00 EDT, Height, 48, k... Start Date: 10/12/19 Status: Ordered tiZANidine 4 mg oral tablet 1, tablet, By Mouth, Every 8 hours, # 90 tablet, Refills 0, Route to Pharmacy Electronically, [facility] 49488, 163, cm, 03/06/21 15:24:00 EDT, Height Start Date: 03/29/21 Status: Ordered valACYclovir 500 mg oral tablet 2, tablet, By Mouth, Daily, # 180 tablet, Refills 1, Route to Pharmacy Electronically, [facility] 48025, 165.1, cm, 05/24/21 17:21:00 EST, Height, 40.9, [...]
--- OUTSIDE RECORDS SUMMARY | 2023-03-21 07:59 | XMS_ITS | Continuity of Care Document ---
Author Name Unknown Organization [facility] Address [address] [place] [address]- Care Team Providers Care Companion Name Role Phone Sebastien HURST, Yael M Primary Care Physician [id number] Date(s): 10/24/20 - 11/23/20 [facility] [place] [address] [place] [address]- Allergies, Adverse Reactions, Alerts No Known Medication Allergies Immunizations Given and Recorded Vaccine Date Status Refusal Reason influenza virus vaccine, inactivated 1, 2 04/20/19 Given Measles/Mumps/Rubella Virus Vaccine 07/25/13 Given tetanus/diphtheria/pertussis, acel(Tdap) 05/25/13 Given 1Result Comment: [facility]# [id number] 2Result Comment: charted on wrong pt. Medications [...] 11/07/20 15:14:00 EDT, Route to Pharmacy Electronically, [facility]/pharmacy #[id number], Partial fill upon patient request if the [...] Maintenance, 10/17/20 14:20:00 EDT, CR Tablet, [facility]/pharmacy #[id number], Partial fill upon patient request if the prescription is for a schedule II opioid drug., 163, cm, 10/17/20 14:06:00 EDT, Heig... Start Date: 10/17/20 Stop Date: 05/15/21 Status: Ordered ondansetron 4 mg oral tablet 1 tablet, By Mouth, Every 12 hours, PRN NEEDED FOR NAUSEA AND VOMITING FOR, # 60 tablet, 1 Refills, Maintenance, 06/22/20 8:37:00 EST, [facility] STORE 20741, 163, cm, 04/04/20 13:24:00 EDT, Height, 48, kg, 12/13/18 14:17:00 EDT, Dry Weight Start Date: 06/22/20 Stop Date: 07/22/20 Status: Ordered Rid Pediculicide 0.33%-4% topical shampoo 1 applicator, Topically, Once, as directed on package labeling, # 118 mL, 1 Refills, Soft Stop, 10/12/19 14:24:00 EDT, [facility]/pharmacy #[id number], 1 applicator Topically Once,Instr:as [...]
--- OUTSIDE RECORDS SUMMARY | 2023-03-21 07:59 | XMS_ITS | Continuity of Care Document ---
Author Name Unknown Organization [facility] Address [address] [place] [address]- Care Team Providers Care Market Research Executive Name Role Phone Sebastien HURST, Yael Fields Primary Care Physician Encounter [facility] Date(s): 03/07/21 - [facility] [address] [place], [place] [id number]- [place] Allergies, Adverse Reactions, Alerts No Known Medication Allergies Immunizations Given and Recorded Vaccine Date Status Refusal Reason influenza virus vaccine, inactivated 1, 2 04/20/19 Given Measles/Mumps/Rubella Virus Vaccine 07/25/13 Given tetanus/diphtheria/pertussis, acel(Tdap) 05/25/13 Given 1Result Comment: [facility]# [id number] 2Result Comment: charted on wrong pt. Medications [...] Refills, Maintenance, 10/17/20 14:20:00 EDT, CR Tablet, [facility]/pharmacy #[id number], Partial fill upon patient request if the prescription is for a schedule II opioid drug., 163, cm, 10/17/20 14:06:00 EDT, [place]... Start Date: 10/17/20 Stop Date: 05/15/21 Status: Ordered ondansetron 4 mg oral tablet 1 tablet, By Mouth, Every 12 hours, PRN NEEDED FOR NAUSEA AND VOMITING FOR, # 60 tablet, 1 Refills, Maintenance, 06/22/20 8:37:00 EST, [facility] STORE 32414, 163, cm, 04/04/20 13:24:00 EDT, Height, 48, kg, 12/13/18 14:17:00 EDT, Dry Weight Start Date: 06/22/20 Stop Date: 07/22/20 Status: Ordered Rid Pediculicide 0.33%-4% topical shampoo 1 applicator, Topically, Once, as directed on package labeling, # 118 mL, 1 Refills, Soft Stop, 10/12/19 14:24:00 EDT, [facility]/pharmacy #[id number], 1 applicator Topically Once,Instr:as directed on package labeling, 163, cm, 04/20/19 15:52:00 EDT, Height, 48, k... Start Date: 10/12/19 Status: Ordered tiZANidine 4 mg oral tablet 1, tablet, By Mouth, Every 8 hours, # 90 tablet, Refills 0, Route to Pharmacy Electronically, [facility] STORE [id number], 163, cm, 03/06/21 15:24:00 EDT, Height Start Date: 03/29/21 Status: Ordered valACYclovir 500 mg oral tablet 1,000 mg, 2, tablet, By Mouth, Daily, for 30 days, # 60 tablet, Refills 5, Tot. Refills 5, Acute 09/13/21 14:19:00 EST, 03/17/21 14:19:00 EDT, Route to Pharmacy Electronically, [facility]/pharmacy #[id number], 163, cm, 03/06/21 [...]
--- OUTSIDE RECORDS SUMMARY | 2023-03-21 07:59 | XMS_ITS | Continuity of Care Document ---
Author Name Unknown Organization [facility] Address [address] [place] [address]- Care Team Providers Care Debit Agent Name Role Phone Yael Crowe MD Primary Care Physician [phone] Encounter [facility] NBR [id number] Date(s): 02/04/20 - 02/11/20 [facility] Adult [address] [address]- Attending Physician: Yael Crowe MD Allergies, Adverse Reactions, Alerts No Known Medication Allergies Immunizations Given and Recorded Vaccine Date Status Refusal Reason influenza virus vaccine, inactivated 1, 2 04/20/19 Given Measles/Mumps/Rubella Virus Vaccine 07/25/13 Given tetanus/diphtheria/pertussis, acel(Tdap) 05/25/13 Given 1Result Comment: [facility]# [id number] 2Result Comment: charted on wrong pt. Medications [...] 1 Refills, Soft Stop, 10/12/19 14:24:00 EDT, [facility]/pharmacy #[id number], 1 applicator Topically Once,Instr:as directed on [...] oldest [Reference Range]: 1 Height 163 cm (02/04/20 2:28 PM) Social History Social History Type Response Smoking Status Former smoker, quit more than 30 days ago; Tobacco user in household: No; Type: Cigarettes; Interested in cessation: No entered on: 08/01/18 Sex Female
--- OUTSIDE RECORDS SUMMARY | 2023-03-21 07:59 | XMS_ITS | Continuity of Care Document ---
Author Name Unknown Organization [facility] Adult In d[facility] Address [address] [place] [address]- Care Team Providers Care Melter Assistant Name Role Phone Sebastien HURST, Yael Fields Primary Care Physician Encounter [facility] NBR [id number] Date(s): 03/15/20 - 04/14/20 [facility] Adult Medicine [address] [place] [address]- Allergies, Adverse Reactions, Alerts No Known Medication Allergies Immunizations Given and Recorded Vaccine Date Status Refusal Reason influenza virus vaccine, inactivated 1, 2 04/20/19 Given Measles/Mumps/Rubella Virus Vaccine 07/25/13 Given tetanus/diphtheria/pertussis, acel(Tdap) 05/25/13 Given 1Result Comment: [facility]# [id number] 2Result Comment: charted on wrong pt. Medications [...]
--- OUTSIDE RECORDS SUMMARY | 2023-03-21 07:59 | XMS_ITS | Continuity of Care Document ---
Author Name Unknown Organization [facility] Address [address] [place] [address]- Care Team Providers Care Booking Supervisor Name Role Phone Natalie Aaron MD Primary Care Physician Encounter [facility] Date(s): 11/21/21 - 12/21/[address] [address] Attending Physician: Drew Ruffin Admitting Physician: Drew Ruffin Referring Physician: AdmtrDrew Allergies, Adverse Reactions, Alerts No Known Medication Allergies Immunizations Given and Recorded Vaccine Date Status Refusal Reason influenza virus vaccine, inactivated 1, 2 04/20/19 Given Measles/Mumps/Rubella Virus Vaccine 07/25/13 Given tetanus/diphtheria/pertussis, acel(Tdap) 05/25/13 Given 1Result Comment: [facility]# [id number] 2Result Comment: charted on wrong pt. Medications [...] Refills, Maintenance, 10/17/20 14:20:00 EDT, CR Tablet, [facility]/pharmacy #[id number], Partial fill upon patient request if the prescription is for a schedule II opioid drug., 163, cm, 10/17/20 14:06:00 EDT, [place]... Start Date: 10/17/20 Stop Date: 05/15/21 Status: Ordered ondansetron 4 mg oral tablet 1 tablet, By Mouth, Every 12 hours, PRN NEEDED FOR NAUSEA AND VOMITING FOR, # 60 tablet, 1 Refills, Maintenance, 06/22/20 8:37:00 EST, [facility] [id number], 163, cm, 04/04/20 13:24:00 EDT, Height, 48, kg, 12/13/18 14:17:00 EDT, Dry Weight Start Date: 06/22/20 Stop Date: 07/22/20 Status: Ordered Rid Pediculicide 0.33%-4% topical shampoo 1 applicator, Topically, Once, as directed on package labeling, # 118 mL, 1 Refills, Soft Stop, 10/12/19 14:24:00 EDT, [facility]/pharmacy #[id number], 1 applicator Topically Once,Instr:as directed on package labeling, 163, cm, 04/20/19 15:52:00 EDT, Height, 48, k... Start Date: 10/12/19 Status: Ordered tiZANidine 4 mg oral tablet 1, tablet, By Mouth, Every 8 hours, # 90 tablet, Refills 0, Route to Pharmacy Electronically, [facility] [id number], 163, cm, 03/06/21 15:24:00 EDT, Height Start Date: 03/29/21 Status: Ordered valACYclovir 500 mg oral tablet 2, tablet, By Mouth, Daily, # 180 tablet, Refills 1, Route to Pharmacy Electronically, [facility] 14583, 165.1, cm, 05/24/21 17:21:00 EST, Height, 40.9, [...]
--- OUTSIDE RECORDS SUMMARY | 2023-03-21 07:59 | XMS_ITS | Continuity of Care Document ---
Author Name Unknown Organization [facility] Address [address] [place] [address]- Care Team Providers Care Combination Technician Name Role Phone Sebastien HURST, Yael Fields Primary Care Physician [place] [facility] Date(s): 02/07/21 - 02/14/21 [facility] [address] [place] [address]- Encounter Diagnosis Sinusitis(Discharge Diagnosis) - 02/07/21 Attending Physician: Juan R Palacios MD Admitting Physician: Juan R Palacios MD Allergies, Adverse Reactions, Alerts No Known Medication Allergies Immunizations Given and Recorded Vaccine Date Status Refusal Reason influenza virus vaccine, inactivated 1, 2 04/20/19 Given Measles/Mumps/Rubella Virus Vaccine 07/25/13 Given tetanus/diphtheria/pertussis, acel(Tdap) 05/25/13 Given 1Result Comment: [facility]# [id number] 2Result Comment: charted on wrong pt. Medications [...] Maintenance, 10/17/20 14:20:00 EDT, CR Tablet, [id number], Partial fill upon patient request if the prescription is for a schedule II opioid drug., 163, cm, 10/17/20 14:06:00 EDT, [place]... Start Date: 10/17/20 Stop Date: 05/15/21 Status: Ordered ondansetron 4 mg oral tablet 1 tablet, By Mouth, Every 12 hours, PRN NEEDED FOR NAUSEA AND VOMITING FOR, # 60 tablet, 1 Refills, Maintenance, 06/22/20 8:37:00 EST, [facility], 163, cm, 04/04/20 13:24:00 EDT, Height, 48, [...] Diagnosis Diagnosis Type Effective Dates Health Status Clini prisca Service Informant Sinusitis Discharge Diagnosis 02/07/21 Social History Social History Type Response Smoking Status Former smoker, quit more than 30 days ago; Tobacco user in household: No; Type: Cigarettes; Interested in cessation: No entered on: 08/01/18 Sex Female
--- OUTSIDE RECORDS SUMMARY | 2023-03-21 07:59 | XMS_ITS | Continuity of Care Document ---
Author Name Unknown Organization [facility] Address [address] [place] [address]- Care Team Providers Care Special Education Administrator Name Role Phone Yael Crowe MD Primary Care Physician [phone] Encounter [facility] Date(s): 03/23/21 - 04/22/21 [facility] [address] [place] [address]- [place] Allergies, Adverse Reactions, Alerts No Known Medication Allergies Immunizations Given and Recorded Vaccine Date Status Refusal Reason influenza virus vaccine, inactivated 1, 2 04/20/19 Given Measles/Mumps/Rubella Virus Vaccine 07/25/13 Given tetanus/diphtheria/pertussis, acel(Tdap) 05/25/13 Given 1Result Comment: [facility]# [id number] 2Result Comment: charted on wrong pt. Medications [...] Maintenance, 10/17/20 14:20:00 EDT, CR Tablet, [facility]/pharmacy #[id number], Partial fill upon patient request if the prescription is for a schedule II opioid drug., 163, cm, 10/17/20 14:06:00 EDT, [place]. Start Date: 10/17/20 Stop Date: 05/15/21 Status: Ordered ondansetron 4 mg oral tablet 1 tablet, By Mouth, Every 12 hours, PRN NEEDED FOR NAUSEA AND VOMITING FOR, # 60 tablet, 1 Refills, Maintenance, 06/22/20 8:37:00 EST, [facility] STORE 69217, 163, cm, 04/04/20 13:24:00 EDT, Height, 48, kg, 12/13/18 14:17:00 EDT, Dry Weight Start Date: 06/22/20 Stop Date: 07/22/20 Status: Ordered Rid Pediculicide 0.33%-4% topical shampoo 1 applicator, Topically, Once, as directed on package labeling, # 118 mL, 1 Refills, Soft Stop, 10/12/19 14:24:00 EDT, [facility]/pharmacy #[id number], 1 applicator Topically Once,Instr:as directed on package labeling, 163, cm, 04/20/19 15:52:00 EDT, Height, 48, k... Start Date: 10/12/19 Status: Ordered tiZANidine 4 mg oral tablet 1, tablet, By Mouth, Every 8 hours, # 90 tablet, Refills 0, Route to Pharmacy Electronically, [facility] STORE 92291, 163, cm, 03/06/21 15:24:00 EDT, Height Start Date: 03/29/21 Status: Ordered valACYclovir 500 mg oral tablet 1,000 mg, 2, tablet, By Mouth, Daily, for 30 days, # 60 tablet, Refills 5, Tot. Refills 5, Acute 09/13/21 14:19:00 EST, 03/17/21 14:19:00 EDT, Route to Pharmacy Electronically, [facility]/pharmacy #[id number], 163, cm, 03/06/21 15:24:00 EDT, Height [...]
--- OUTSIDE RECORDS SUMMARY | 2023-03-21 07:59 | XMS_ITS | Continuity of Care Document ---
Author Name Unknown Organization [facility] Adult [facility] Address [address] [place] [address]- Care Team Providers Care Aircraft Landing Gear Inspector Name Role Phone Yael Crowe MD Primary Care Physician [phone] Encounter [facility] NBR [id number] Date(s): 03/22/20 - 04/22/20 [facility] Adult [address] [address]- Attending Physician: Yael Crowe MD Allergies, Adverse Reactions, Alerts No Known Medication Allergies Immunizations Given and Recorded Vaccine Date Status Refusal Reason influenza virus vaccine, inactivated 1, 2 04/20/19 Given Measles/Mumps/Rubella Virus Vaccine 07/25/13 Given tetanus/diphtheria/pertussis, acel(Tdap) 05/25/13 Given 1Result Comment: [facility]# [id number] 2Result Comment: charted on wrong pt. Medications [...]
--- OUTSIDE RECORDS SUMMARY | 2023-03-21 07:59 | XMS_ITS | Continuity of Care Document ---
Author Name Unknown Organization [facility] Adult [facility] d[facility] Address [address] [place] [address]- Care Team Providers Care Medical Chief Technician Name Role Phone Yael Crowe MD Primary Care Physician [phone] Encounter [facility] NBR [id number] Date(s): 09/22/19 [facility] [address] [place] [address]- Attending Physician: Yael Crowe MD Allergies, Adverse Reactions, Alerts No Known Medication Allergies Immunizations Given and Recorded Vaccine Date Status Refusal Reason influenza virus vaccine, inactivated 1, 2 04/20/19 Given Measles/Mumps/Rubella Virus Vaccine 07/25/13 Given tetanus/diphtheria/pertussis, acel(Tdap) 05/25/13 Given 1Result Comment: [facility]# [id number] 2Result Comment: charted on wrong pt. Medications [...] 1 Refills, Soft Stop, 10/12/19 14:24:00 EDT, [facility]/pharmacy #[id number], 1 applicator Topically Once,Instr:as directed on [...]
--- OUTSIDE RECORDS SUMMARY | 2023-03-21 08:00 | XMS_ITS | Continuity of Care Document ---
Author Name Unknown Organization [facility] Address [address] [place] [address]- Care Team Providers Care Seam Hammerer Name Role Phone Yael Crowe MD Primary Care Physician En[facility] Date(s): 09/01/20 - [facility]01/20 [facility] [address] [place] [address]- Allergies, Adverse Reactions, Alerts No Known Medication Allergies Immunizations Given and Recorded Vaccine Date Status Refusal Reason influenza virus vaccine, inactivated 1, 2 04/20/19 Given Measles/Mumps/Rubella Virus Vaccine 07/25/13 Given tetanus/diphtheria/pertussis, acel(Tdap) 05/25/13 Given 1Result Comment: [facility]# [id number] 2Result Comment: charted on wrong pt. Medications [...] tablet, 1 Refills, Maintenance, 06/22/20 8:37:00 EST, [facility] STORE 47823, 163, cm, 04/04/20 13:24:00 EDT, Height, 48, kg, 12/13/18 14:17:00 EDT, Dry Weight Start Date: 06/22/20 Stop Date: 07/22/20 Status: Ordered Rid Pediculicide 0.33%-4% topical shampoo 1 applicator, Topically, Once, as directed on package labeling, # 118 mL, 1 Refills, Soft Stop, 10/12/19 14:24:00 EDT, [facility]/pharmacy #[id number], 1 applicator Topically Once,Instr:as directed on package labeling, 163, cm, 04/20/19 15:52:00 EDT, Height, 48, k... Start Date: 10/12/19 Status: Ordered valACYclovir 500 mg oral tablet 1,000 mg, 2, tablet, By Mouth, Daily, for 30 days, # 60 tablet, Refills 5, Tot. Refills 5, Acute 10/26/20 14:54:00 EDT, 04/29/20 14:54:00 EDT, Route to Pharmacy Electronically, [facility]/pharmacy #[id number], 163, cm, 04/04/20 13:24:00 [...]
--- OUTSIDE RECORDS SUMMARY | 2023-03-21 08:00 | XMS_ITS | Continuity of Care Document ---
Author Name Unknown Organization [facility] Address [address] [place] [address]- Care Team Providers Care Embedded Software Developer Name Role Phone Yael Crowe MD Primary Care Physician [id number] Date(s): 03/06/21 - 03/13/21 [place] [address]- Attending Physician: Yael Crowe MD Allergies, Adverse Reactions, Alerts No Known Medication Allergies Immunizations Given and Recorded Vaccine Date Status Refusal Reason influenza virus vaccine, inactivated 1, 2 04/20/19 Given Measles/Mumps/Rubella Virus Vaccine 07/25/13 Given tetanus/diphtheria/pertussis, acel(Tdap) 05/25/13 Given 1Result Comment: [facility]# [id number] 2Result Comment: charted on wrong pt. Medications [...] Maintenance, 10/17/20 14:20:00 EDT, CR Tablet, [facility]/pharmacy #[id number], Partial fill [...] Refills, Maintenance, 06/22/20 8:37:00 EST, [facility], 163, cm, 04/04/20 13:24:00 EDT, Height, 48, kg, 12/13/18 14:17:00 EDT, Dry Weight Start Date: 06/22/20 Stop Date: 07/22/20 Status: Ordered Rid Pediculicide 0.33%-4% topical shampoo 1 applicator, Topically, Once, as directed on package labeling, # 118 mL, 1 Refills, Soft Stop, 10/12/19 14:24:00 EDT, [facility]/pharmacy #[id number], 1 applicator Topically Once,Instr:as directed on package labeling, 163, cm, 04/20/19 15:52:00 EDT, Height, 48, k... Start Date: 10/12/19 Status: Ordered tiZANidine 4 mg oral tablet 4 mg, 1, tablet, By Mouth, Every 8 hours, # 90 tablet, Refills 0, Tot. Refills 0, Maintenance, 03/08/21 9:33:00 EDT, Route to Pharmacy Electronically, [facility]/pharmacy #[id number], Partial fill upon patient request if [...] oldest [Reference Range]: 1 Height 163 cm (03/06/21 3:24 PM) Social History Social History Type Response Smoking Status Former smoker, quit more than 30 days ago; Tobacco user in household: No; Type: Cigarettes; Interested in cessation: No entered on: 08/01/18 Sex Female
--- OUTSIDE RECORDS SUMMARY | 2023-03-21 08:00 | XMS_ITS | Continuity of Care Document ---
Author Name Unknown Organization [facility] Address [address] [place] [address]- Care Team Providers Care Fitting Room Attendant Name Role Phone Yael Crowe MD Primary Care Physician Encounter [facility] NBR [id number] Date(s): 04/04/20 - 04/11/20 [facility] Adult [address] [address]- Attending Physician: Yael Crowe MD Allergies, Adverse Reactions, Alerts No Known Medication Allergies Immunizations Given and Recorded Vaccine Date Status Refusal Reason influenza virus vaccine, inactivated 1, 2 04/20/19 Given Measles/Mumps/Rubella Virus Vaccine 07/25/13 Given tetanus/diphtheria/pertussis, acel(Tdap) 05/25/13 Given 1Result Comment: [facility]# [id number] 2Result Comment: charted on wrong pt. Medications [...] oldest [Reference Range]: 1 Height 163 cm (04/04/20 1:24 PM) Social History Social History Type Response Smoking Status Former smoker, quit more than 30 days ago; Tobacco user in household: No; Type: Cigarettes; Interested in cessation: No entered on: 08/01/18 Sex Female
--- OUTSIDE RECORDS SUMMARY | 2023-03-21 08:00 | XMS_ITS | Continuity of Care Document ---
Author Name Unknown Organization [facility] Address [address] [place] [address]- Care Team Providers Care Plycor Operator Name Role Phone Yael Crowe MD Primary Care Physician Encounter [facility] NBR [id number] Date(s): 07/26/20 - [facility] [address] [place] [address]- Attending Physician: Yael Crowe MD Allergies, Adverse Reactions, Alerts No Known Medication Allergies Immunizations Given and Recorded Vaccine Date Status Refusal Reason influenza virus vaccine, inactivated 1, 2 04/20/19 Given Measles/Mumps/Rubella Virus Vaccine 07/25/13 Given tetanus/diphtheria/pertussis, acel(Tdap) 05/25/13 Given 1Result Comment: [facility]# [id number] 2Result Comment: charted on wrong pt. Medications [...] tablet, 1 Refills, Maintenance, 06/22/20 8:37:00 EST, [facility] STORE 98794, 163, cm, 04/04/20 13:24:00 EDT, Height, 48, kg, 12/13/18 14:17:00 EDT, Dry Weight Start Date: 06/22/20 Stop Date: 1/15/21 Status: Ordered Rid Pediculicide 0.33%-4% topical shampoo [...]
--- OUTSIDE RECORDS SUMMARY | 2023-03-21 08:00 | XMS_ITS | Continuity of Care Document ---
Author Name Unknown Organization [facility] Address [address] [place] [address]- Care Team Providers Care Check Inspector Name Role Phone Yael Crowe MD Primary Care Physician [phone] Encounter [facility] NBR [id number] Date(s): 08/13/19 [facility] [address] [place] [address]- Attending Physician: Yael Crowe MD Allergies, Adverse Reactions, Alerts No Known Medication Allergies Immunizations Given and Recorded Vaccine Date Status Refusal Reason influenza virus vaccine, inactivated 1, 2 04/20/19 Given Measles/Mumps/Rubella Virus Vaccine 07/25/13 Given tetanus/diphtheria/pertussis, acel(Tdap) 05/25/13 Given 1Result Comment: [facility]# [id number] 2Result Comment: charted on wrong pt. Medications [...] Refills, Soft Stop, 10/12/19 14:24:00 EDT, [facility]/pharmacy #[id number], 1 applicator Topically [...]
--- OUTSIDE RECORDS SUMMARY | 2023-03-21 08:00 | XMS_ITS | Continuity of Care Document ---
Author Name Unknown Organization [facility] Address [address] [place] [address]- Care Team Providers Care Manager Supply Name Role Phone Sebastien HURST, Yael Fields Primary Care Physician [phone] Encounter [facility] NBR [id number] Date(s): 04/04/20 - 05/04/20 [facility] Adult [address] [address]- Attending Physician: Drew Ruffin Admitting Physician: Drew Ruffin Referring Physician: AdmtrDrew Allergies, Adverse Reactions, Alerts No Known Medication Allergies Immunizations Given and Recorded Vaccine Date Status Refusal Reason influenza virus vaccine, inactivated 1, 2 04/20/19 Given Measles/Mumps/Rubella Virus Vaccine 07/25/13 Given tetanus/diphtheria/pertussis, acel(Tdap) 05/25/13 Given 1Result Comment: [facility]# [id number] 2Result Comment: charted on wrong pt. Medications [...] 1 Refills, Soft Stop, 10/12/19 14:24:00 EDT, [facility]/pharmacy #[id number], 1 applicator Topically Once,Instr:as directed on package labeling, 163, cm, 04/20/19 15:52:00 EDT, Height, 48, k... Start Date: 10/12/19 Status: Ordered valACYclovir 500 mg oral tablet 1,000 mg, 2, tablet, By Mouth, Daily, for 30 days, # 60 tablet, Refills 5, Tot. Refills 5, Acute 10/26/20 14:54:00 EDT, 04/29/20 14:54:00 EDT, Route to Pharmacy Electronically, [facility]/pharmacy #[id number], 163, cm, 04/04/20 13:24:00 EDT, Height, 48, kg, ... Start Date: 04/29/20 Stop Date: 10/26/20 Status: Ordered Zofran 4 mg oral tablet 1 tablet = 4 mg, By Mouth, Every 12 hours, PRN Nausea & Vomiting, # 60 tablet, 1 Refills, Maintenance, 04/04/20 14:16:00 EDT, Tablet, [facility]/pharmacy #[id number], 163, cm, 04/04/20 13:24:00 EDT, Height, [...]
[2023-03-21] MEDS: Meclizine HCl 25 MG TABLET PO (11:55)
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
== END 2023-03-21 13:24 | disposition home or self-care (01) ==
PROVIDERS: Emergency Provider Emergency Medicine
DX: E87.6 Hypokalemia (principal); F10.220 Alcohol dependence with intoxication, uncomplicated; Y90.9 Presence of alcohol in blood, level not specified; R11.2 Nausea with vomiting, unspecified; Z79.899 Other long term (current) drug therapy
CPT/HCPCS: 36415; 80048; 80076; 83735; 84702; 85025; 96361; 96374; 96375; 99284; J2405